=== PATIENT | male | born 1965 | race Caucasian/White ===

== ENCOUNTER 2018-01-20 10:55 | Emergency (ER) | payer SELFPAY ==
[2018-01-20] MEDS ORDERED: NA CHLORIDE 0.9% 1,000 ML ONE (11:22)
[2018-01-20 11:50] LABS: Absolute Lymphocytes (CBC) 1.8 K/uL (0.7-4.9); Absolute Monocytes 1.2 K/uL (0.1-1.3); Absolute Neutrophil 8.5 K/uL (1.8-8.0); Basophils % 0.4 % (0-1.3); Eosinophils % 0.4 % (0-4.4); Lymphocytes % 15.9 % (15.3-44.8); MCH 32.2 pg (27.0-35.0); MCV 95.4 fL (80-100); MPV 9.9 fL (7.6-11.3); RBC Red Blood Cell Count 5.03 M/uL (4.33-5.43)
[2018-01-20 11:59] LABS: Protime INR 0.97
--- NOTE | 2018-01-20 12:22 | RAD REPORT ---
EXAM DESCRIPTION: RAD - Chest Single View - 01/20/2018 12:14 pm CLINICAL HISTORY: COUGH Chest pain. COMPARISON: No comparisons FINDINGS: Portable technique limits examination quality. The lungs are grossly clear. The heart is normal in size. No displaced fractures. IMPRESSION: No acute intrathoracic process suspected.
[2018-01-20 12:29] LABS: ALT/SGPT 21 U/L (12-78); AST/SGOT 18 U/L (15-37); Albumin 4.1 g/dL (3.4-5.0); Alkaline Phosphatase 89 U/L (45-117); BUN Blood Urea Nitrogen 23 mg/dL (7-18); Bicarbonate 28 mmol/L (21-32); Bilirubin Direct < 0.1 mg/dL (0-0.2); Bilirubin Total 0.3 mg/dL (0.2-1.0); CKMB Creatine Kinase MB < 1.0 ng/mL (0.3-3.6); Creatine Phosphokinase 68 U/L (39-308); Glucose Level 103 mg/dL (74-106); Lipase 79 U/L (73-393); Magnesium 2.2 mg/dL (1.8-2.4); NT PRO-BNP 55 pg/mL (<125); Potassium 4.5 mmol/L (3.5-5.1); Protein, Total 7.9 g/dL (6.4-8.2); Sodium Level 137 mmol/L (136-145)
--- NOTE | 2018-01-20 13:06 | EDPHYS ---
Physician Documentation [facility] Name: Jose Brantley Age: 52 yrs Sex: Male : 1965 Arrival Date: 01/20/2018 Time: 10:57 Bed 8 Private MD: ED Physician Mark Cornejo HPI: 01/20 13:02 This 52 yrs old Male presents to ER via Ambulatory with complaints of Pain janna All Over, General Weakness. 13:02 The patient presents to the emergency department with weakness of the entire body, janna generalized weakness. 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 - Social history:: Smoking status: Patient uses tobacco products, smokes one-half pack cigarettes per day, Patient uses alcohol, weekly. - Ebola Screening: : No symptoms or risks identified at this time. ROS: 13:02 Constitutional: Negative for fever, chills, and weight loss, Eyes: Negative for injury, janna pain, redness, and discharge, ENT: Negative for injury, pain, and discharge, Neck: Negative for injury, pain, and swelling, Cardiovascular: Negative for chest pain, palpitations, and edema, Back: Negative for injury and pain, : Negative for injury, bleeding, discharge, and swelling, MS/Extremity: Negative for injury and deformity, Skin: Negative for injury, rash, and discoloration, Neuro: Negative for headache, weakness, numbness, tingling, and seizure, Psych: Negative for depression, anxiety, suicide ideation, homicidal ideation, and hallucinations, Allergy/Immunology: Negative for hives, rash, and allergies, Endocrine: Negative for neck swelling, polydipsia, polyuria, polyphagia, and marked weight changes, Hematologic/Lymphatic: Negative for swollen nodes, abnormal bleeding, and unusual bruising. 13:02 Respiratory: Positive for cough. 13:02 Abdomen/GI: Positive for abdominal pain. Exam: 13:02 Constitutional: This is a well developed, well nourished patient who is awake, alert, janna and in no acute distress. Head/Face: Normocephalic, atraumatic. Eyes: Pupils equal round and reactive to light, extra-ocular motions intact. Lids and lashes normal. Conjunctiva and sclera are non-icteric and not injected. Cornea within normal limits. Periorbital areas with no swelling, redness, or edema. ENT: Nares patent. No nasal discharge, no septal abnormalities noted. Tympanic membranes are normal and external auditory canals are clear. Oropharynx with no redness, swelling, or masses, exudates, or evidence of obstruction, uvula midline. Mucous membranes moist. Neck: Trachea midline, no thyromegaly or masses palpated, and no cervical lymphadenopathy. Supple, full range of motion without nuchal rigidity, or vertebral point tenderness. No Meningismus. Chest/axilla: Normal chest wall appearance and motion. Nontender with no deformity. No lesions are appreciated. Cardiovascular: Regular rate and rhythm with a normal S1 and S2. No gallops, murmurs, or rubs. Normal PMI, no JVD. No pulse deficits. Respiratory: Lungs have equal breath sounds bilaterally, clear to auscultation and percussion. No rales, rhonchi or wheezes noted. No increased work of breathing, no retractions or nasal flaring. Back: No spinal tenderness. No costovertebral tenderness. Full range of motion. Male : Normal genitalia with no discharge or lesions. Skin: Warm, dry with normal turgor. Normal color with no rashes, no lesions, and no evidence of cellulitis. MS/ Extremity: Pulses equal, no cyanosis. Neurovascular intact. Full, normal range of motion. Neuro: Awake and alert, GCS 15, oriented to person, place, time, and situation. Cranial nerves II-XII grossly intact. Motor strength 5/5 in all extremities. Sensory grossly intact. Cerebellar exam normal. Normal gait. Psych: Awake, alert, with orientation to person, place and time. Behavior, mood, and affect are within normal limits. 13:02 Abdomen/GI: Inspection: abdomen appears normal, Bowel sounds: normal, Palpation: mild abdominal tenderness, in the epigastric area, Liver: no appreciated palpable abnormalities, Hernia: not appreciated. Vital Signs: 11:06 BP 129 / 109; Pulse 99; Resp 18; Temp 97.5; Pulse Ox 99% ; Weight 72.57 kg; Height 6 sv ft. 0 in. (182.88 cm); 11:06 Body Mass Index 21.70 (72.57 kg, 182.88 cm) sv MDM: 11:10 Patient medically screened. [facility] 13:03 Data reviewed: vital signs, nurses notes, lab test result(s), EKG, radiologic studies, janna plain films. 01/20 11:18 Order name: Basic Metabolic Panel; Complete Time: 13:00 [facility] 01/20 11:18 Order name: CBC with Diff; Complete Time: 13: [facility] 01/20 11:18 Order name: Ckmb; Complete Time: 13: [facility] 01/20 11:18 Order name: CPK; Complete Time: 13: [facility] 01/20 11:18 Order name: LFT's; Complete Time: 13: [facility] 01/20 11:18 Order name: Magnesium; Complete Time: 13: [facility] 01/20 11:18 Order name: NT PRO-BNP; Complete Time: 13: [facility] 01/20 11:18 Order name: PT-INR; Complete Time: 13: [facility] 01/20 11:18 Order name: Ptt, Activated; Complete Time: 13: [facility] 01/20 11:18 Order name: Troponin (emerg Dept Use Only); Complete Time: 13: [facility] 01/20 11:18 Order name: Lipase; Complete Time: 13: [facility] 01/20 11:18 Order name: Blood Culture Adult (2) 01/20 11:18 Order name: Urine Culture [facility] 01/20 11:18 Order name: Flu; Complete Time: 13: [facility] 01/20 11:18 Order name: XRAY Chest (1 view); Complete Time: 13: [facility] 01/20 11:18 Order name: EKG; Complete Time: 11:19 [facility] 01/20 11:18 Order name: Cardiac monitoring; Complete Time: 11: [facility] 01/20 11:18 Order name: EKG - Nurse/Tech; Complete Time: 12:13 [facility] 01/20 11:18 Order name: IV Saline Lock; Complete Time: 11: [facility] 01/20 11:18 Order name: Labs collected and sent; Complete Time: 11: [facility] 01/20 11:18 Order name: O2 Per Protocol; Complete Time: 11:18 [facility] 01/20 11:18 Order name: O2 Sat Monitoring; Complete Time: : [facility] 01/20 12:57 Order name: Urine Dipstick--Ancillary (enter results) bd Administered Medications: 11:30 Drug: NS 0.9% 1000 ml Route: IV; Rate: 125 ml/hr; Site: right antecubital; iw 13:27 Follow up: Response: No adverse reaction; Rate change 1000 bolus sg 13:54 Drug: Zithromax 500 mg Route: PO; sg 13:55 Drug: Pepcid 20 mg Route: IVP; Site: left forearm; sg Disposition: 01/20/18 13:06 Discharged to Home. Impression: Weakness, Bronchitis, not specified as acute or chronic, Functional dyspepsia. - Condition is Stable. - Discharge Instructions: Acute Bronchitis, Upper Respiratory Infection, Adult, Weakness, Upper Respiratory Infection, Adult, Ucor-eb-Ahcz, Weakness, Lwno-ja-Ubex, Aspirin and Your Heart. - Prescriptions for Pepcid 20 mg Oral Tablet - take 1 tablet by ORAL route every 12 hours for 10 days; 20 tablet. Zithromax Z- Kendall 250 mg Oral Tablet - take 1 tablet by ORAL route as directed for 5 days Day 1 - take two (2) tablets one time. Day 2, 3, 4 , 5 take one (1) tablet once daily.; 6 tablet. - Medication Reconciliation Form, Thank You Letter, Antibiotic Education, Prescription Opioid Use form. - Follow up: Private Physician; When: 2 - 3 days; Reason: Recheck today's complaints, Continuance of care, Re-evaluation by your physician. - Problem is new. - Symptoms have improved. Signatures: Dispatcher [employer] Jeannette Pina RN RN Jermaine Joel RN RN sg Anderson, Corey, MD MD cha Williams, Irene, RN RN Corrections: (The following items were deleted from the chart) 14:52 13:06 01/20/2018 13:06 Discharged to Home. Impression: Weakness; Bronchitis, not iw specified as acute or chronic; Functional dyspepsia. Condition is Stable. Forms are Medication Reconciliation Form, Thank You Letter, Antibiotic Education, Prescription Opioid Use. Follow up: Private Physician; When: 2 - 3 days; Reason: Recheck today's complaints, Continuance of care, Re-evaluation by your physician. Problem is new. Symptoms have improved. [facility]
--- NOTE | 2018-01-20 13:06 | ER ---
Nurse's Notes [facility] Name: Jose Brantley Age: 52 yrs Sex: Male : 1965 Arrival Date: 01/20/2018 Time: 10:57 Bed 8 Private MD: Diagnosis: Weakness;Bronchitis, not specified as acute or chronic;Functional dyspepsia Presentation: 01/20 11:06 Presenting complaint: Patient states: cold symptoms for the past couple of weeks, no sv appetite, chills, nausea, cough. Denies vomiting/diarrhea. Transition of care: patient was not received from another setting of care. Onset of symptoms is unknown. Care prior to arrival: None. 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 - Social history:: Smoking status: Patient uses tobacco products, smokes one-half pack cigarettes per day, Patient uses alcohol, weekly. - Ebola Screening: : No symptoms or risks identified at this time. Assessment: 12:00 General: Appears in no apparent distress. comfortable, well groomed, well developed, sg well nourished, Behavior is calm, cooperative, appropriate for age. Pain: Complains of pain in pain all over, epigastric area Quality of pain is described as aching. Neuro: Level of Consciousness is awake, alert, obeys commands, Oriented to person, place, time, situation, Hatchery Laborer are equal bilaterally Moves all extremities. Full function Speech is normal, Facial symmetry appears normal. Cardiovascular: Heart tones S1 S2 present Capillary refill is brisk in bilateral fingers Patient's skin is warm and dry. Chest pain is denied. Respiratory: Airway is patent Respiratory effort is even, unlabored, Respiratory pattern is regular, symmetrical, Breath sounds are clear. GI: Abdomen is round non-distended, Bowel sounds present X 4 quads. Reports epigastric pain. : No signs and/or symptoms were reported regarding the genitourinary system. EENT: No signs and/or symptoms were reported regarding the EENT system. Derm: Skin is pink, warm \T\ dry. Musculoskeletal: No signs and/or symptoms reported regarding the musculoskeletal system. 13:00 Reassessment: Patient appears in no apparent distress at this time. Patient and/or sg family updated on plan of care and expected duration. Pain level reassessed. Patient is alert, oriented x 3, equal unlabored respirations, skin warm/dry/pink. Vital Signs: 11:06 BP 129 / 109; Pulse 99; Resp 18; Temp 97.5; Pulse Ox 99% ; Weight 72.57 kg; Height 6 sv ft. 0 in. (182.88 cm); 11:06 Body Mass Index 21.70 (72.57 kg, 182.88 cm) sv ED Course: 10:57 Patient arrived in ED. rg4 11:06 Arm band placed on right wrist. Patient placed in an exam room, on a stretcher. sv 11:10 Mark Cornejo MD is Attending Physician. [facility] 11:14 Triage completed. sv 11:18 Jermaine Joel RN is Primary Nurse. sg 11:30 Initial lab(s) drawn, by va, sent to lab. Inserted saline lock: 20 gauge in left iw forearm, using aseptic technique. Blood collected. 12:06 X-ray completed. Portable x-ray completed in exam room. Patient tolerated procedure jb2 well. 12:12 XRAY Chest (1 view) In Process Unspecified. EDMS Administered Medications: 11:30 Drug: NS 0.9% 1000 ml Route: IV; Rate: 125 ml/hr; Site: right antecubital; iw 13:27 Follow up: Response: No adverse reaction; Rate change 1000 bolus sg 13:54 Drug: Zithromax 500 mg Route: PO; sg 13:55 Drug: Pepcid 20 mg Route: IVP; Site: left forearm; sg Outcome: 13:06 Discharge ordered by . janna 14:52 Patient left the ED. iw Signatures: Dispatcher [employer] EDMS Jeannette Berger RN RN sv Gay, Steven, RN Mark Porter MD MD cha Buechter, Jesse jb2 Nhi Blackwell RN RN Kim Robin rg4
[2018-01-20 13:10] LABS: Urine Blood NEGATIVE (NEG); Urine Glucose NEGATIVE (NEG); Urine Protein NEGATIVE (NEG)
[2018-01-20] MEDS ORDERED: FAMOTIDINE 20 MG/2 ML VIAL IV ONE (13:50)
[2018-01-20] MEDS ORDERED: AZITHROMYCIN 250 MG TAB ONE (13:50)
[2018-01-20 14:56] VITALS: BP 129/109; TEMP 97.5; O2SAT 99
--- NOTE | 2018-01-20 15:40 | EKG ---
Test Date: 2018-01-20 Test Time: 11:47:27 City Planner: [place] MEASUREMENT RESULTS: Intervals: Rate: 83 OK: 194 QRSD: 84 QT: 372 QTc: 437 Shaniko: P: 74 OK: 194 QRS: -57 T: 45 INTERPRETIVE STATEMENTS: Normal sinus rhythm Left axis deviation Cannot rule out Anteroseptal infarct, age undetermined Abnormal ECG No previous ECG available for comparison Electronically Signed On 01-20-18 15:40:18 CDT by Umang Kaiser
== END 2018-01-20 14:52 | disposition home or self-care (01) ==
LOC: ER 10:55
DX: R53.1 Weakness (principal); J40 Bronchitis, not specified as acute or chronic; K30 Functional dyspepsia; R52 Pain, unspecified; F17.210 Nicotine dependence, cigarettes, uncomplicated; Z88.0 Allergy status to penicillin
CPT/HCPCS: 36415; 71045; 80048; 80076; 81003; 82550; 82553; 83690; 83735; 83880; 84484; 85025; 85610; 85730; 87040; 87086; 87088; 87804; 93005; 96374; 99284; J7030

== ENCOUNTER 2019-12-04 09:24 | Emergency (ER) | payer SELFPAY ==
[2019-12-04] MEDS ORDERED: MORPHINE 4 MG/ML SYR ONE (10:02)
[2019-12-04] MEDS ORDERED: NA CHLORIDE 0.9% 1,000 ML ONE (10:02)
[2019-12-04] MEDS ORDERED: ONDANSETRON 4 MG/2 ML VIAL ONE (10:02)
[2019-12-04 10:08] LABS: Absolute Lymphocytes (CBC) 1.4 K/uL (0.7-4.9); Basophils % 0.4 % (0-1.3); Hematocrit 46.3 % (39.6-49.0); MPV 9.7 fL (7.6-11.3); RBC Red Blood Cell Count 4.57 M/uL (4.33-5.43)
[2019-12-04 10:20] LABS: Urine Bacteria NONE SEEN /HPF (NONE SEEN); Urine RBC <5 /HPF (NONE SEEN)
[2019-12-04 10:21] LABS: Urine Blood NEGATIVE (NEG); Urine Glucose NEGATIVE (NEG); Urine Protein NEGATIVE (NEG); Urine Specific Gravity 1.025 (1.005-1.030)
[2019-12-04 10:21] LABS: Urine Culture Reflex Order NOT NEEDED
--- NOTE | 2019-12-04 10:42 | RAD REPORT ---
EXAM DESCRIPTION: CT - Stone Protocol - 12/04/2019 10:17 am CLINICAL HISTORY: Right low back pain COMPARISON: Stone Protocol dated 06/21/2017 TECHNIQUE: Axial 3 mm thick images were obtained without oral or IV contrast. The [id number] span s the entirety of the system including uppermost abdomen and lung bases. All CT scans are performed using dose optimization technique as appropriate and may include automated exposure control or mA/KV adjustment according to patient size. FINDINGS: No hydronephrosis is present and no obstructing ureteral calculi. No suspicious renal mass es. Isodense masses and pyelonephritis are not excluded on a stone protocol CT scan. No significant a drenal finding. Urinary bladder is only partially filled. This accentuates wall thickness. Cystitis c ould be obscured in this setting. Imaged portions of the liver, spleen and pancreas show no suspicious findings on non-contrast imaging . No gallbladder or biliary tree abnormality identified. Gallstones can be occult on noncontrast imag ing. No suspicious bowel findings. No evidence for appendicitis. No hernia, mass or bulky lymphadenopathy noted. No free air, free fluid or inflammatory stranding. Degenerative right convex scoliotic changes are present in the lower lumbar spine. Advanced degenerat nicolasa disc disease at L5-S1 with endplate spurring and degenerative gas in the disc space. Right centra l canal and right foramen disc bulge changes are present at L2-3. Circumferential disc bulge present at L3-4. Protruding disc material present in the right central canal and fills the right exit foramen . This is probably a large disc herniation. Nerve root mass is not excluded. The patient has advanced facet joint degenerative change at this level. Significant T11-12 degenerative disc disease is prese nt. There is concavity to the superior endplate L2. IMPRESSION: Soft tissue mass filling the right exit foramen and partially filling the right central canal at L4-5. This is typically a large disc herniation. Central spinal stenosis and significant rig ht foraminal stenosis are present. Additional vertebral body and disc degenerative changes are present. There is limited assessment on C T abdomen and pelvis imaging. No hydronephrosis or acute finding. The partially filled bladder limits assessment of cystitis. Isodense masses and pyelonephritis are not excluded on stone protocol technique.
[2019-12-04 11:07] LABS: Albumin 3.6 g/dL (3.4-5.0); Bilirubin Direct 0.1 mg/dL (0-0.2); Bilirubin Total 0.3 mg/dL (0.2-1.0); Potassium 4.2 mmol/L (3.5-5.1); Protein, Total 7.2 g/dL (6.4-8.2)
--- NOTE | 2019-12-04 11:14 | ER ---
Nurse's Notes [facility] Name: Jose Brantley Age: 54 yrs Sex: Male : 1965 Arrival Date: 12/04/2019 Time: 09: Bed 5 Private MD: None, None Diagnosis: Other intervertebral disc displacement, lumbar region Presentation: 12/03 09:31 Ebola Screen: No symptoms or risks identified at this time. Initial Sepsis Screen: Does jl7 the patient meet any 2 criteria? No. Patient's initial sepsis screen is negative. Does the patient have a suspected source of infection? No. Patient's initial sepsis screen is negative. Risk Assessment: Do you want to hurt yourself or someone else? Patient reports no desire to harm self or others. 09:31 Method Of Arrival: Ambulatory [facility] 09:35 Chief complaint: Patient states: low back pain, "tailbone" area x 2-3 months. Pt also ss reports increasing urinary frequency that began around the same time. Coronavirus screen: Proceed with normal triage. Patient denies a cough. Patient denies shortness of breath or difficulty breathing. Patient denies measured and/or subjective temperature greater than 100.4F prior to today's visit. Patient denies travel on a cruise ship or to a country the [facility] currently lists as an affected area. Patient denies contact with known and/or suspected case of COVID-19. Onset of symptoms is unknown. 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 - Social history:: Smoking status: Patient reports the use of cigarette tobacco products, smokes one-half pack cigarettes per day. Screenin:30 Abuse screen: Denies threats or abuse. Denies injuries from another. Nutritional jl7 screening: No deficits noted. Tuberculosis screening: No symptoms or risk factors identified. 10:00 Fall Risk IV access (20 points). Total Wall Fall Scale indicates No Risk (0-24 pts). jl7 Assessment: 09:30 General: Appears in no apparent distress. uncomfortable, Behavior is calm, cooperative, jl7 appropriate for age. Pain: Complains of pain in low back area Pain radiates to right leg and left leg Pain currently is 8 out of 10 on a pain scale. Neuro: Level of Consciousness is awake, alert, obeys commands, Oriented to person, place, time, situation. Cardiovascular: Patient's skin is warm and dry. Respiratory: Airway is patent Respiratory effort is even, unlabored, Respiratory pattern is regular, symmetrical. Derm: Skin is pink, warm \\T\\ dry. 10:30 Reassessment: Patient appears in no apparent distress at this time. Patient and/or jl7 family updated on plan of care and expected duration. Pain level reassessed. Patient is alert, oriented x 3, equal unlabored respirations, skin warm/dry/pink. Patient states symptoms have improved. Vital Signs: 09:35 BP 151 / 101; Pulse 102; Resp 15; Temp 98.5(TE); Pulse Ox 98% on R/A; Weight 79.38 kg; ss Height 6 ft. 0 in. (182.88 cm); Pain 8/10; 11:00 BP 149 / 95; Pulse 89; Resp 16; Pulse Ox 100% ; jl7 09:35 Body Mass Index 23.73 (79.38 kg, 182.88 cm) ED Course: 09:26 Patient arrived in ED. mr 09:27 None, None is Private Physician. mr 09:28 Mark Cornejo MD is Attending Physician. [facility] 09:28 Chandler Israel [facility] pm1 09:30 Mary Beth Garcia RN is Primary Nurse. jl7 09:30 Patient has correct armband on for positive identification. Bed in low position. Call jl7 light in reach. Side rails up X 1. Pulse ox on. NIBP on. 09:31 Arm band placed on right wrist. jl7 09:37 Triage completed. ss 09:50 Initial lab(s) drawn, by me, sent to lab. Inserted saline lock: 20 gauge in right em forearm, using aseptic technique. Blood collected. 09:55 Lab(s) recollected, by me, sent to lab. Inserted saline lock: 20 gauge in left forearm, [facility] using aseptic technique. Blood collected. 10:17 CT Stone Protocol In Process Unspecified. EDMS 10:17 CT completed. Patient tolerated procedure well. Patient moved back from CT. bq 11:37 IV discontinued, intact, bleeding controlled, No redness/swelling at site. Pressure jl7 dressing applied. 11:37 No provider procedures requiring assistance completed. jl7 Administered Medications: 09:58 Drug: NS 0.9% 1000 ml Route: IV; Rate: 1000 ml; Site: right forearm; em 09:58 Drug: Zofran (Ondansetron) 4 mg Route: IVP; Site: right forearm; em 10:00 Drug: morphine 4 mg Route: IVP; Site: right forearm; em 11:20 Drug: Lidoderm 5 % (700 mg/patch) 1 patches Route: Topical; Site: affected area; jl7 Outcome: 11:13 Discharge ordered by . pm1 11:35 Discharged to home ambulatory. jl7 11:35 Condition: stable 11:35 Discharge instructions given to patient, Instructed on discharge instructions, follow up and referral plans. medication usage, Demonstrated understanding of instructions, follow-up care, medications, Prescriptions given X 2. 11:40 Patient left the ED. jl7 Signatures: Dispatcher [employer] EDMS Mark Cornejo MD MD cha Rivera, Mary mr NayelilexieBaylee Edgar, Angeles Olivarez RN, RN RN ss Chandler Israel NP SINGER SONGWRITER pm1 Mary Beth Garcia RN RN jl7 Corrections: (The following items were deleted from the chart) 09:33 09:31 PMHx: Pancreatitis; jl7 jl7
--- NOTE | 2019-12-04 11:14 | EDPHYS ---
Physician Documentation [facility] Name: Jose Brantley Age: 54 yrs Sex: Male : 1965 Arrival Date: 12/04/2019 Time: 09:26 Bed 5 Private MD: None, None ED Physician Mark Cornejo HPI: 12/03 09:36 This 54 yrs old Male presents to ER via Ambulatory with complaints of Back pm1 Pain. 09:36 The patient presents with pain to right lower back area. Onset: The symptoms/episode pm1 began/occurred 3 month(s) ago. The pain radiates to the right leg. Associated signs and symptoms: Pertinent positives: Increased urination, Pertinent negatives: abdominal pain, chest pain, constipation, fever, numbness, tingling, urinary retention, burning with urination. The problem was sustained from unknown cause, possibly from right hip injury surgery 12 years ago. Modifying factors: The patient symptoms are alleviated by rest, the patient symptoms are aggravated by movement. Severity of symptoms: in the emergency department the symptoms are unchanged. The patient has not recently seen a physician. 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 - Social history:: Smoking status: Patient reports the use of cigarette tobacco products, smokes one-half pack cigarettes per day. ROS: 09:31 Constitutional: Negative for fever, chills, and weight loss, Neck: Negative for injury, pm1 pain, and swelling, Cardiovascular: Negative for chest pain, palpitations, and edema, Respiratory: Negative for shortness of breath, cough, wheezing, and pleuritic chest pain, Abdomen/GI: Negative for abdominal pain, nausea, vomiting, diarrhea, and constipation. 09:31 MS/Extremity: Negative for injury and deformity, Skin: Negative for injury, rash, and discoloration, Neuro: Negative for headache, weakness, numbness, tingling, and seizure. 09:31 Back: Positive for pain with movement, of the sacrum and right low back. 09:31 : Positive for urinary frequency. Exam: 09:39 Constitutional: This is a well developed, well nourished patient who is awake, alert, pm1 and in no acute distress. Head/Face: Normocephalic, atraumatic. Neck: Trachea midline, no thyromegaly or masses palpated, and no cervical lymphadenopathy. Supple, full range of motion without nuchal rigidity, or vertebral point tenderness. No Meningismus. Chest/axilla: Normal chest wall appearance and motion. Nontender with no deformity. No lesions are appreciated. Respiratory: Lungs have equal breath sounds bilaterally, clear to auscultation and percussion. No rales, rhonchi or wheezes noted. No increased work of breathing, no retractions or nasal flaring. 09:39 Abdomen/GI: Soft, non-tender. No guarding or rebound. No evidence of tenderness throughout. 09:39 Skin: Warm, dry with normal turgor. Normal color with no rashes, no lesions, and no evidence of cellulitis. MS/ Extremity: Pulses equal, no cyanosis. Neurovascular intact. Full, normal range of motion. 09:39 Cardiovascular: Exam negative for acute changes, Rate: normal, Rhythm: regular, Pulses: no pulse deficits are appreciated. 09:39 Respiratory: Exam negative for acute changes, respiratory distress, shortness of breath. 09:39 Back: pain, that is mild, of the right low back, vertebral tenderness, is not appreciated. 09:39 Neuro: Orientation: is normal, Mentation: is normal, Motor: is normal, moves all fours, strength is 5/5 in all extremities, Patient with 5/5 strength with dorsi and plantar flexion of bilateral great toes. Patient able to walk back and forth to the restroom without any difficulty, Sensation: is normal, no obvious gross deficits, Gait: is steady, at a normal pace, without difficulty. Vital Signs: 09:35 BP 151 / 101; Pulse 102; Resp 15; Temp 98.5(TE); Pulse Ox 98% on R/A; Weight 79.38 kg; ss Height 6 ft. 0 in. (182.88 cm); Pain 8/10; 11:00 BP 149 / 95; Pulse 89; Resp 16; Pulse Ox 100% ; jl7 09:35 Body Mass Index 23.73 (79.38 kg, 182.88 cm) ss MDM: 09:28 Patient medically screened. [facility] 11:12 Data reviewed: vital signs. Data interpreted: Pulse oximetry: on room air is 98 %. pm1 Interpretation: normal. 11:12 Counseling: I had a detailed discussion with the patient and/or guardian regarding: the pm1 historical points, exam findings, and any diagnostic results supporting the discharge/admit diagnosis, lab results, radiology results, the need for outpatient follow up, for definitive care, a neurosurgeon, to return to the emergency department if symptoms worsen or persist or if there are any questions or concerns that arise at home. 12/03 09:34 Order name: Basic Metabolic Panel; Complete Time: 11:12 pm1 12/03 09:34 Order name: CBC with Diff; Complete Time: 10:11 pm1 12/03 09:34 Order name: Creatinine for Radiology; Complete Time: 11:12 pm1 12/03 09:34 Order name: Hepatic Function; Complete Time: 11:12 pm1 12/03 09:34 Order name: Lipase; Complete Time: 11:12 pm1 12/03 09:34 Order name: Urine Microscopic Only; Complete Time: 10:24 pm1 12/03 09:34 Order name: IV Saline Lock; Complete Time: 10:01 pm1 12/03 09:34 Order name: Labs collected and sent; Complete Time: 10:01 pm1 12/03 09:34 Order name: CT Stone Protocol; Complete Time: 10:46 pm1 12/03 10:02 Order name: Urine Dipstick--Ancillary (enter results); Complete Time: 10:24 eb 12/03 09:34 Order name: Urine Dipstick-Ancillary (obtain specimen); Complete Time: 09:43 pm1 12/03 10:10 Order name: Labs - recollect needed: recollect the chemistry tube/ ; Complete Time: eb 10:55 Administered Medications: 09:58 Drug: NS 0.9% 1000 ml Route: IV; Rate: 1000 ml; Site: right forearm; em 09:58 Drug: Zofran (Ondansetron) 4 mg Route: IVP; Site: right forearm; em 10:00 Drug: morphine 4 mg Route: IVP; Site: right forearm; em 11:20 Drug: Lidoderm 5 % (700 mg/patch) 1 patches Route: Topical; Site: affected area; jl7 Disposition: 12/04/19 11:13 Discharged to Home. Impression: Other intervertebral disc displacement, lumbar region. - Condition is Stable. - Discharge Instructions: Herniated Disk. - Prescriptions for Lidoderm 5 % Topical adhesive patch,medicated - apply 1 patch by TRANSDERMAL route once daily As needed; 30 Transdermal Patch. Tylenol- Codeine #3 300-30 mg Oral Tablet - take 2 tablets by ORAL route every 6 hours As needed; 20 tablet. - Medication Reconciliation Form, Thank You Letter, Antibiotic Education, Prescription Opioid Use form. - Follow up: Emergency Department; When: As needed; Reason: Worsening of condition. Follow up: Private Physician; When: 2 - 3 days; Reason: Recheck today's complaints, Continuance of care, Re-evaluation by your physician. - Problem is new. - Symptoms have improved. Addendum: 12/06/2019 20:15 Co-signature as Attending Physician, Mark Cornejo MD I agree with the assessment and c sellers plan of care. Signatures: Dispatcher [employer] Mark Suárez MD MD cha Munoz, Edgar, RN RN Angeles Cochran RN RN ss Chandler Israel, R[employer] C[employer]ER SUPPORT SPECIALIST pm1 Mary Beth Garcia RN RN jl7 Sneha Rodriguez Corrections: (The following items were deleted from the chart) 12/03 09:33 09:31 PMHx: Pancreatitis; jl7 jl7 11:40 11:13 12/04/2019 11:13 Discharged to Home. Impression: Other intervertebral disc jl7 displacement, lumbar region. Condition is Stable. Discharge Instructions: Herniated Disk. Prescriptions for Lidoderm 5 % Topical adhesive patch,medicated - apply 1 patch by TRANSDERMAL route once daily As needed; 30 Transdermal Patch, Tylenol-Codeine #3 300-30 mg Oral Tablet - take 2 tablets by ORAL route every 6 hours As needed; 20 tablet. and Forms are Medication Reconciliation Form, Thank You Letter, Antibiotic Education, Prescription Opioid Use. Follow up: Emergency Department; When: As needed; Reason: Worsening of condition. Follow up: Private Physician; When: 2 - 3 days; Reason: Recheck today's complaints, Continuance of care, Re-evaluation by your physician. Problem is new. Symptoms have improved. pm1
[2019-12-04] MEDS ORDERED: LIDOCAINE 4% PATCH ONE (11:22)
[2019-12-04 11:50] VITALS: TEMP 98.5
[2019-12-04 11:51] VITALS: BP 149/95; O2SAT 100
== END 2019-12-04 11:40 | disposition home or self-care (01) ==
LOC: ER 09:24
DX: M51.26 Other intervertebral disc displacement, lumbar region (principal); F17.210 Nicotine dependence, cigarettes, uncomplicated; Z88.0 Allergy status to penicillin
CPT/HCPCS: 36415; 74176; 76377; 80048; 80076; 81003; 81015; 83690; 85025; 96374; 96375; 99284; J2405; J7030

== ENCOUNTER 2024-01-21 10:28 | Inpatient (IN) | payer OTHER, SELFPAY ==
--- OUTSIDE RECORDS SUMMARY | 2024-01-21 10:32 | XMS REPORT | Continuity of Care Document ---
Author Name Unknown Address [address] [facility] [address] [place] [address] [facility] Address [address] [facility] [address] [place] [address] Care Team Providers Care Atm Servicer Name Role Phone Pcp, Patient Does Not Have A Primary Care Physic guillermo CAPRI Attending Clinician Unavailable Nicole Blackwell DO Attending Clinician [phone] Doctor Unassigned, Callery Attending Clinician U Janay Dunne Attending Clinician [phone] JANAY MCUCLLOUGH Attending Clinician Unavailab dano FAROOQ Admitting Clinician Unavailable Payers Payer Name Policy Type Policy Number Effective Date Expirati on Date Source Problems Condition Name Condition Details Condition Category Status Onset Date Resolution Date Last Treatment Date Treating Clinician Comments Source Chest pain Chest Pain Problem Active 01-20 00:00: 00 [facility] Anxiety Anxiety Problem Active 11-25 00:00: 00 [facility] Essential hypertensi on Essential Hypertensi on Problem Active 11-25 00:00: 00 [facility] Pneumonia Pneumonia Problem Active 11-25 00:00: 00 [facility] Low back pain Low Back Pain Problem Active 5-01 00:00: 00 [facility] Verruca vulgaris Verruca Vulgaris Problem Active 6-02 00:00: 00 [facility] Active or passive immunizati on Active or Passive Immunizati on Problem Active 6-02 00:00: 00 [facility] Screening for malignant neoplasm of colon Screening for Malignant Neoplasm of Colon Problem Active 6-02 00:00: 00 [facility] Essential hypertensi on Essential Hypertensi on Problem Active 4-06 00:00: 00 [facility] Urinary tract infectious disease Urinary Tract Infectious Disease Problem Active 4-06 00:00: 00 [facility] Chronic low back pain Chronic Low Back Pain Problem Active 4-06 00:00: 00 [facility] Nocturia Nocturia Problem Active 4-06 00:00: 00 [facility] Adult health examinatio n Adult Health Examinatio n Problem Active 4-06 00:00: 00 [facility] Chest pain Chest pain Disease Active 4-04 00:00: 00 Overview: Formattin g of this note might be different from the original. ICD10 Diagnosis Term Record Tester Utility [facility] Other specified anemias Other specified anemias Disease Active 10-04 00:00: 00 [facility] Acute pancreatit is Acute pancreatit is Disease Active 10-04 00:00: 00 [facility] Chronic pancreatit is Chronic pancreatit is Disease Active 10-04 00:00: 00 [facility] Esophageal reflux Esophageal reflux Disease Active 10-04 00:00: 00 [facility] Allergies, Adverse Reactions, Alerts Allergy Name Allergy Type Status Severity Reaction(s) Onset Date Inactive Date Treating Clinician Comments Source Penicill ins Propensi ty to adverse reaction s Active Rash 10-04 00:00: 00 [facility] PENICILL INS Drug Class Active Rash 10-04 00:00: 00 [facility] PENICILL INS Allergy to substanc e Active Moderate severity Rash [facility] Social History Social Habit Start Date Stop Date Quantity Comments Source Exposure to SARS-CoV-2 (event) Not sure [facility] Sex Assigned At 1965 00:00:00 1965 00:00:00 [facility] Smoking Status Start Date Stop Date Source Former Smoker Oumar choe Heavy Tobacco Smoker [facility] Unknown if ever smoked [facility] Medications Ordered Medication Name Filled Medication Name Start Date Stop Date Current Medication? Ordering Clinician Indication Dosage Frequency Signature (SIG) Comments Components Source dexamethaso ne (DECADRON PHOSPHATE) injection 10 mg 2020-07 19:15: 00 04-28 19:15 :00 No 10mg 10 mg, Intramuscu lar, ONCE, 1 dose, On 04/28/21 at 1415, STAT [facility] traMADol (ULTRAM) tablet 50 mg 12-10 17:00: 00 12-10 16:02 :00 No 50mg 50 mg, Oral, ONCE, 1 dose, 12/11/19 at 1200, Routine [facility] traMADol 50 mg tablet 12-10 00:00: 00 12-10 00:00 :00 No [id number] 50mg Take 1 tablet by mouth every 6 (six) hours as needed for Pain (scale 7-10) for up to 3 days. [facility] LEVOFLOXACI N 500 MG ORAL TAB 11-14 00:00: 00 Yes 1 tab po daily for 7 days [facility] METRONIDAZO LE 500 MG ORAL TAB 11-14 00:00: 00 Yes 1 tab po Q8h for 7 days [facility] FUROSEMIDE 20 MG ORAL TAB 11-14 00:00: 00 Yes 1 tab po BID for 10 days [facility] HYDROCODONE -ACETAMINOP HEN 5-325 MG ORAL TAB 11-14 00:00: 00 Yes 2 tab po q6h prn [facility] acetaminoph en 300 mg-codeine 30 mg tablet TAKE 1 TABLET BY MOUTH EVERY 6 HOURS NEEDED FOR PAIN acetaminoph en 300 mg-codeine 30 mg tablet TAKE 1 TABLET BY MOUTH EVERY 6 HOURS NEEDED FOR PAIN No 1 Q6H acetaminop hen 300 mg-codeine 30 mg tablet TAKE 1 TABLET BY MOUTH EVERY 6 HOURS NEEDED FOR PAIN [facility] amlodipine 5 mg tablet Take 1 tablet every day by oral route for 30 days. amlodipine 5 mg tablet Take 1 tablet every day by oral route for 30 days. No 1 Q1D amlodipine 5 mg tablet Take 1 tablet every day by oral route for 30 days. [facility] gabapentin 300 mg capsule TAKE 1 CAPSULE BY MOUTH THREE TIMES DAILY gabapentin 300 mg capsule TAKE 1 CAPSULE BY MOUTH THREE TIMES DAILY No 1capsul e(s) TID gabapentin 300 mg capsule TAKE 1 CAPSULE BY MOUTH THREE TIMES DAILY [facility] methocarbam ol 750 mg tablet Take 1 tablet 3 times a day by oral route as needed for 30 days. methocarbam ol 750 mg tablet Take 1 tablet 3 times a day by oral route as needed for 30 days. No 1 TID methocarba mol 750 mg tablet Take 1 tablet 3 times a day by oral route as needed for 30 days. [facility] podofilox 0.5 % topical solution APPLY BY TOPICAL ROUTE 2 TIMES PER DAY FOR 3 DAYS THEN STOP FOR 4 DAYS. (REPEAT 7DAY CYCLE UNTIL NO VISIBLE WART TISSUE/MAX OF FOUR CYCLES) podofilox 0.5 % topical solution APPLY BY TOPICAL ROUTE 2 TIMES PER DAY FOR 3 DAYS THEN STOP FOR 4 DAYS. (REPEAT 7DAY CYCLE UNTIL NO VISIBLE WART TISSUE/MAX OF FOUR CYCLES) No podofilox 0.5 % topical solution APPLY BY TOPICAL ROUTE 2 TIMES PER DAY FOR 3 DAYS THEN STOP FOR 4 DAYS. (REPEAT 7DAY CYCLE UNTIL NO VISIBLE WART TISSUE/MAX OF FOUR CYCLES) [facility] gabapentin 300 mg capsule TAKE 1 CAPSULE BY MOUTH THREE TIMES DAILY gabapentin 300 mg capsule TAKE 1 CAPSULE BY MOUTH THREE TIMES DAILY No gabapentin 300 mg capsule TAKE 1 CAPSULE BY MOUTH THREE TIMES DAILY [facility] methocarbam ol 750 mg tablet TAKE 1 TABLET BY MOUTH THREE TIMES DAILY NEEDED methocarbam ol 750 mg tablet TAKE 1 TABLET BY MOUTH THREE TIMES DAILY NEEDED No methocarba mol 750 mg tablet TAKE 1 TABLET BY MOUTH THREE TIMES DAILY NEEDED [facility] podofilox 0.5 % topical solution APPLY BY TOPICAL ROUTE 2 TIMES PER DAY FOR 3 DAYS THEN STOP FOR 4 DAYS. (REPEAT 7DAY CYCLE UNTIL NO VISIBLE WART TISSUE/MAX OF FOUR CYCLES) podofilox 0.5 % topical solution APPLY BY TOPICAL ROUTE 2 TIMES PER DAY FOR 3 DAYS THEN STOP FOR 4 DAYS. (REPEAT 7DAY CYCLE UNTIL NO VISIBLE WART TISSUE/MAX OF FOUR CYCLES) No podofilox 0.5 % topical solution APPLY BY TOPICAL ROUTE 2 TIMES PER DAY FOR 3 DAYS THEN STOP FOR 4 DAYS. (REPEAT 7DAY CYCLE UNTIL NO VISIBLE WART TISSUE/MAX OF FOUR CYCLES) [facility] diclofenac 1 % topical gel APPLY 2 GRAMS TO THE AFFECTED AREA(S) BY TOPICAL ROUTE 4 TIMES PER DAY diclofenac 1 % topical gel APPLY 2 GRAMS TO THE AFFECTED AREA(S) BY TOPICAL ROUTE 4 TIMES PER DAY No diclofenac 1 % topical gel APPLY 2 GRAMS TO THE AFFECTED AREA(S) BY TOPICAL ROUTE 4 TIMES PER DAY [facility] doxazosin 1 mg tablet Take 1 tablet every day by oral route in the evening for 30 days. doxazosin 1 mg tablet Take 1 tablet every day by oral route in the evening for 30 days. No 1 Q1D doxazosin 1 mg tablet Take 1 tablet every day by oral route in the evening for 30 days. [facility] gabapentin 300 mg capsule Take 1 capsule 3 times a day by oral route for 90 days. gabapentin 300 mg capsule Take 1 capsule 3 times a day by oral route for 90 days. No 1capsul e(s) TID gabapentin 300 mg capsule Take 1 capsule 3 times a day by oral route for 90 days. [facility] lisinopril 10 mg tablet Take 1 tablet every day by oral route. lisinopril 10 mg tablet Take 1 tablet every day by oral route. No 1 Q1D lisinopril 10 mg tablet Take 1 tablet every day by oral route. [facility] methocarbam ol 750 mg tablet Take 1 tablet 3 times a day by oral route as needed. methocarbam ol 750 mg tablet Take 1 tablet 3 times a day by oral route as needed. No 1 TID methocarba mol 750 mg tablet Take 1 tablet 3 times a day by oral route as needed. [facility] lisinopril 20 mg tablet TAKE 1 TABLET BY MOUTH ONCE DAILY lisinopril 20 mg tablet TAKE 1 TABLET BY MOUTH ONCE DAILY No 1 Q1D lisinopril 20 mg tablet TAKE 1 TABLET BY MOUTH ONCE DAILY [facility] tramadol 100 mg tablet Take 1 tablet every 8 hours by oral route as needed. tramadol 100 mg tablet Take 1 tablet every 8 hours by oral route as needed. No 1 Q8H tramadol 100 mg tablet Take 1 tablet every 8 hours by oral route as needed. [facility] gabapentin 300 mg capsule Take 1 capsule 3 times a day by oral route for 90 days. gabapentin 300 mg capsule Take 1 capsule 3 times a day by oral route for 90 days. No 1capsul e(s) TID gabapentin 300 mg capsule Take 1 capsule 3 times a day by oral route for 90 days. [facility] methocarbam ol 500 mg tablet TAKE 1 TABLET BY MOUTH THREE TIMES DAILY NEEDED methocarbam ol 500 mg tablet TAKE 1 TABLET BY MOUTH THREE TIMES DAILY NEEDED No 1 TID methocarba mol 500 mg tablet TAKE 1 TABLET BY MOUTH THREE TIMES DAILY NEEDED [facility] metoprolol succinate ER 25 mg tablet,exte nded release 24 hr Take 1 tablet every day by oral route for 30 days. metoprolol succinate ER 25 mg tablet,exte nded release 24 hr Take 1 tablet every day by oral route for 30 days. No 1 Q1D metoprolol succinate ER 25 mg tablet,ext ended release 24 hr Take 1 tablet every day by oral route for 30 days. [facility] Vital Signs Vital Name Observation Time Observation Value Comments S ource Body Weight 2024-01-21 00:00:00 2704 [oz_av] [facility] BP Diastolic 2024-01-21 00:00:00 130 mm[Hg] [facility] BMI (Body Mass Index) 2024-01-21 00:00:00 22.9 kg/m2 [facility] Height 2024-01-21 00:00:00 72 [in_i] [facility] BP Systolic 2024-01-21 00:00:00 233 mm[Hg] [facility] BP Diastolic 2023-11-26 00:00:00 123 mm[Hg] [facility] Body Weight 2023-11-26 00:00:00 2720 [oz_av] [facility] Height 2023-11-26 00:00:00 72 [in_i] [facility] BMI (Body Mass Index) 2023-11-26 00:00:00 23.1 kg/m2 [facility] BP Systolic 2023-11-26 00:00:00 159 mm[Hg] [facility] BP Diastolic 2023-01-20 00:00:00 103 mm[Hg] [facility] Height 2023-01-20 00:00:00 71 [in_i] [facility] BMI (Body Mass Index) 2023-01-20 00:00:00 23.4 kg/m2 [facility] BP Systolic 2023-01-20 00:00:00 153 mm[Hg] [facility] Body Weight 2023-01-20 00:00:00 167.8 [lb_av] [facility] BP Diastolic 2022-12-27 00:00:00 101 mm[Hg] [facility] Height 2022-12-27 00:00:00 71 [in_i] [facility] BMI (Body Mass Index) 2022-12-27 00:00:00 23.8 kg/m2 [facility] BP Systolic 2022-12-27 00:00:00 155 mm[Hg] [facility] Body Weight 2022-12-27 00:00:00 170.7 [lb_av] S [facility] Height 2021-11-07 00:00:00 71 [in_i] [facility] BP Diastolic 2021-10-30 00:00:00 88 mm[Hg] [facility] Height 2021-10-30 00:00:00 71 [in_i] [facility] BMI (Body Mass Index) 2021-10-30 00:00:00 22.4 kg/m2 [facility] BP Systolic 2021-10-30 00:00:00 140 mm[Hg] [facility] Body Weight 2021-10-30 00:00:00 160.7 [lb_av] [facility] Systolic blood pressure 2021-04-28 17:50:00 171 mm[Hg] [facility] Diastolic blood pressure 2021-04-28 17:50:00 100 mm[Hg] [facility] Heart rate 2021-04-28 17:50:00 101 /min [facility] Body temperature 2021-04-28 17:50:00 37.5 Melvi [facility] Respiratory rate 2021-04-28 17:50:00 18 /min [facility] Body weight 2021-04-28 17:50:00 77.111 kg [facility] Oxygen saturation in Arterial blood by Pulse oximetry 2021-04-28 17:50:00 99 /min [facility] Systolic blood pressure 2019-12-11 15:42:00 163 mm[Hg] [facility] Diastolic blood pressure 2019-12-11 15:42:00 100 mm[Hg] [facility] Heart rate 2019-12-11 15:42:00 93 /min [facility] Body temperature 2019-12-11 15:42:00 36.94 Melvi [facility] Respiratory rate 2019-12-11 15:42:00 18 /min [facility] Body weight 2019-12-11 15:42:00 77.097 kg [facility] Oxygen saturation in Arterial blood by Pulse oximetry 2019-12-11 15:42:00 96 /min [facility] Procedures Procedure Date / Time Performed Performing Clinician Source electrocardiogram, routine ECG, 12 leads min 2024-01-21 00:00:00 [facility] NOTICE OF PRIVACY PRACTICES 2021-04-28 17:46:25 Doctor Unassigned, Callery [facility] CONSENT/REFUSAL FOR DIAGNOSIS AND TREATMENT 2021-04-28 17:44:03 Doctor Unassigned, Callery [facility] Hand Surgery [facility] Hip Surgery [facility] Unlisted Procedure Pancreas [facility] Hip Arthroscopy Dx [facility] Pancreatectomy [facility] Plan of Care Planned Activity Planned Date Details Comments Source Diagnostic Test Pending 2022-12-27 00:00:00 fecal occult blood, immunoassay, stool [code = fecal occult blood, immunoassay, stool] [facility] Diagnostic Test Pending 2022-12-27 00:00:00 PSA, serum or plasma [code = PSA, serum or plasma] [facility] Diagnostic Test Pending 2022-12-27 00:00:00 HIV (1+2) Ab screen, serum [code = HIV (1+2) Ab screen, serum] [facility] Diagnostic Test Pending 2022-12-27 00:00:00 CBC w/ auto diff [code = CBC w/ auto diff] [facility] Diagnostic Test Pending 2022-12-27 00:00:00 CMP, serum or plasma [code = CMP, serum or plasma] [facility] Diagnostic Test Pending 2022-12-27 00:00:00 HbA1c (hemoglobin A1c), blood [code = HbA1c (hemoglobin A1c), blood] [facility] Diagnostic Test Pending 2022-12-27 00:00:00 lipid panel, serum [code = lipid panel, serum] [facility] Diagnostic Test Pending 2022-12-27 00:00:00 vitamin D, 25-hydroxy, total, serum [code = vitamin D, 25-hydroxy, total, serum] [facility] Diagnostic Test Pending 2022-12-27 00:00:00 PSA, serum or plasma [code = PSA, serum or plasma] [facility] Diagnostic Test Pending 2022-12-27 00:00:00 TSH, ultra-sensitive, serum [code = TSH, ultra-sensitive, serum] [facility] Diagnostic Test Pending 2022-12-27 00:00:00 hepatitis C virus Ab, serum [code = hepatitis C virus Ab, serum] [facility] Instructions [facility] Encounters Start Date/Time End Date/Time Encounter Type Admission Type Attending [facility] Facility Care Department Encounter ID Source 2024-01-21 00:00:00 2024-01-21 00:00:00 DEMETRIO Draper C: [address] [place] [address], [address] [address] , Ph. [facility] [id number] 0626 [facility] 2023-11-26 00:00:00 2023-11-26 00:00:00 DEMETRIO Draper C: [address] [facility], [address] [place] [address] , Ph. [facility] [address] [facility] 2023-05-09 00:00:00 2023-05-09 00:00:00 Outpatient GALLOWAY_C SJOSE SJOSE [id number] [facility] 2023-01-20 00:00:00 2023-01-20 00:00:00 Outpatient GALLOWAY_C SJOSE SJOSE [id number] [facility] 2023-01-20 00:00:00 2023-01-20 00:00:00 Rony Madrigal MD: [address] [place] [address] , Ph. SJOSE [facility] [id number] [facility] 2022-12-27 00:00:00 2022-12-27 00:00:00 Outpatient GALLOWAY_C SJOSE SJOSE [id number] [facility] 2022-12-27 00:00:00 2022-12-27 00:00:00 Outpatient GALLOWAY_C SJOSE SJOSE 601 [facility] 2022-12-27 00:00:00 2022-12-27 00:00:00 Geetha Arce, POURED CONCRETE WALL TECHNICIAN: [address] [place] [address] , Ph. SJOSE [facility] [id number] [facility] 2022-06-05 00:00:00 2022-06-05 00:00:00 Outpatient GALLOWAY_C SJOSE SJOSE [id number] [facility] 2022-05-08 00:00:00 2022-05-08 00:00:00 Outpatient GALLOWAY_C SJOSE SJOSE [id number] [facility] 2021-11-08 01:48:00 2021-11-08 01:48:00 Outpatient GALLOWAY_C SJOSE SJOSE [id number] [facility] 2021-11-07 11:44:00 2021-11-07 11:44:00 Outpatient GALLOWAY_C SJOSE SJOSE [id number] [facility] 2021-11-07 00:00:00 2021-11-07 00:00:00 Geetha Arce, POURED CONCRETE WALL TECHNICIAN: [address] [place] [address] , Ph. SJOSE [facility] Edwin [id number] [facility] 2021-10-30 04:03:00 2021-10-30 04:03:00 Outpatient GALLOWAY_C [facility] 404 [facility] 2021-10-30 04:03:00 2021-10-30 04:03:00 Outpatient GALLOWAY_C [facility] 405 [facility] 2021-10-30 00:00:00 2021-10-30 00:00:00 Geetha Arce, POURED CONCRETE WALL TECHNICIAN: [address] [place] [address] , Ph. SJOSE [facility] Pineda [id number] [facility] 2021-10-18 12:23:00 2021-10-18 12:23:00 Outpatient GALLOWAY_C [facility] [id number] [facility] 2021-04-28 12:52:00 2021-04-28 13:45:00 Emergency Nicole Blackwell [facility] [id number] [facility] 2021-04-28 12:44:00 2021-04-28 12:44:00 Emergency X [facility] [id number] [facility] 2021-04-28 00:00:00 2021-04-28 00:00:00 Orders Only Doctor Unassigned, Callery [facility] [id number] [facility] 2019-12-11 10:45:33 2019-12-11 12:08:00 Emergency Janay Mccullough [facility] [id number] [facility] 2019-12-11 10:45:33 2019-12-11 10:45:33 Emergency X JANAY MCCULLOUGH DEMB ERT [id number] [facility] Results Test Description Test Time Test Comments Results Result Co mments Source [facility] W Auto Differential panel - [id number] 00:00:00* Test Item Value Reference Range Interpretation Comme nts Leukocytes [#/volume] in Blo od by Automated count (test code = 6690-2) 12.4 x10e3/uL 3.4-10.8 H Erythrocytes [#/volume] in Blood by Automated count (test code = 789-8) 4.59 x10e6/uL 4.14-5.80 Hemoglobin [Mass/volume] in Blood (test code = 718-7) 14.8 g/dL 13.0-17.7 Hematocrit [Volume Fraction] of Blood by Automated count (test code = 4544-3) 43.7 % 37.5-51.0 Erythrocyte mean corpuscular volume [Entitic volume] by Automated count (test code = 787-2) 95 fL 79-97 MCH [Entitic mass] by Automa tiffanie count (test code = 785-6) 32.2 pg 26.6-33.0 Erythrocyte mean corpuscular hemoglobin concentration [Mass/volume] by Automated count (test code = 786-4) 33.9 g/dL 31.5-35.7 Erythrocyte distribution wid th [Ratio] by Automated count (test code = 788-0) 12.9 % 11.6-15.4 Platelets [#/volume] in Bloo d by Automated count (test code = 777-3) 226 x10e3/uL 150-450 Neutrophils/100 leukocytes i n Blood by Automated count (test code = 770-8) 65 % not estab. Lymphocytes/100 leukocytes i n Blood by Automated count (test code = 736-9) 21 % not estab. Monocytes/100 leukocytes in Blood by Automated count (test code = 5905-5) 12 % not estab. Eosinophils/100 leukocytes i n Blood by Automated count (test code = 713-8) 1 % not estab. Basophils/100 leukocytes in Blood by Automated count (test code = 706-2) 1 % not estab. immature cells (test code = immature cells) band lining bander Neutrophils [#/volume] in Bl ood by Automated count (test code = 751-8) 8.1 x10e3/uL 1.4-7.0 H Lymphocytes [#/volume] in Bl ood by Automated count (test code = 731-0) 2.6 x10e3/uL 0.7-3.1 Monocytes [#/volume] in Bloo d by Automated count (test code = 742-7) 1.5 x10e3/uL 0.1-0.9 H Eosinophils [#/volume] in Bl ood by Automated count (test code = 711-2) 0.1 x10e3/uL 0.0-0.4 Basophils [#/volume] in Bloo d by Automated count (test code = 704-7) 0.1 x10e3/uL 0.0-0.2 Immature granulocytes/100 leukocytes in Blood by Automated count (test code = 53936-7) 0 % not estab. Immature granulocytes [#/volume] in Blood by Automated count (test code = 82131-5) 0.0 x10e3/uL 0.0-0.1 Nucleated erythrocytes/100 leukocytes [Ratio] in Blood by Automated count (test code = 22161-9) band lining bander Morphology [Interpretation] in Blood Narrative (test code = 56137-8) band lining bander [facility] - Serum or [id number] 00:00:00* Test Item Value Reference Range Interpretation Comme nts Glucose [Mass/volume] in Ser um or Plasma (test code = 2345-7) 84 mg/dL 65-99 Urea nitrogen [Mass/volume] in Serum or Plasma (test code = 3094-0) 18 mg/dL 6-24 Creatinine [Mass/volume] in Serum or Plasma (test code = 2160-0) 1.22 mg/dL 0.76-1.27 eGFR (test code = eGFR) 70 mL/min/1.73 >59 Urea nitrogen/Creatinine [Ma ss Ratio] in Serum or Plasma (test code = 3097-3) 15 9-20 Sodium [Moles/volume] in Ser um or Plasma (test code = 2951-2) 140 mmol/L 134-144 Potassium [Moles/volume] in Serum or Plasma (test code = 2823-3) 4.6 mmol/L 3.5-5.2 Chloride [Moles/volume] in Serum or Plasma (test code = 5-0) 103 mmol/L 96-106 Carbon dioxide, total [Moles/volume] in Serum or Plasma (test code = 2027-) 17 mmol/L 20-29 L Calcium [Mass/volume] in Ser um or Plasma (test code = 14968-3) 9.7 mg/dL 8.7-10.2 Protein [Mass/volume] in Ser um or Plasma (test code = 2885-2) 7.0 g/dL 6.0-8.5 Albumin [Mass/volume] in Ser um or Plasma (test code = 1751-7) 4.7 g/dL 3.8-4.9 Globulin [Mass/volume] in Serum by calculation (test code = 95750-9) 2.3 g/dL 1.5-4.5 Albumin/Globulin [Mass Ratio ] in Serum or Plasma (test code = 1759-0) 2.0 1.2-2.2 Bilirubin.total [Mass/volume ] in Serum or Plasma (test code = 1974-2) 0.3 mg/dL 0.0-1.2 Alkaline phosphatase [Enzymatic activity/volume] in Serum or Plasma (test code = 6768-6) 94 IU/L 44-121 Aspartate aminotransferase [Enzymatic activity/volume] in Serum or Plasma (test code = 192-8) 17 IU/L 0-40 Alanine aminotransferase [Enzymatic activity/volume] in Serum or Plasma (test code = 1742-6) 13 IU/L 0-44 [facility] - Serum or [id number] 00:00:00* Test Item Value Reference Range Interpretation Comme nts Cholesterol [Mass/volume] in Serum or Plasma (test code = 2093-3) 207 mg/dL 100-199 H Triglyceride [Mass/volume] i n Serum or Plasma (test code = 2571-8) 86 mg/dL 0-149 Cholesterol in HDL [Mass/vol ume] in Serum or Plasma (test code = 2085-9) 86 mg/dL >39 Cholesterol in VLDL [Mass/vo lume] in Serum or Plasma by calculation (test code = 12431-6) 15 mg/dL 5-40 Cholesterol in LDL [Mass/vol ume] in Serum or Plasma by calculation (test code = 21723-2) 106 mg/dL 0-99 H Laboratory comment [Text] in Report Narrative (test code = 05177-4) band [facility]em[facility].total in [id number] 00:00:00* Test Item Value Reference Range Interpretation Comme nts Hemoglobin A1c/Hemoglobin.to herman in Blood (test code = 4548-4) 5.3 % 4.8-5.6 [facility] in Serum or Plasma by Detection limit <= 0.005 mIU/[id number] 00:00:00* Test Item Value Reference Range Interpretation Comme nts Thyrotropin [Units/volume] i n Serum or Plasma by Detection limit <= 0.005 mIU/L (test code = 13019-5) 1.350 uIU/mL 0.450-4.500 [facility]
[2024-01-21] MEDS ORDERED: LORazepam 2 MG/ML VIAL ONE (11:00)
[2024-01-21] MEDS ORDERED: FAMOTIDINE 20 MG/2 ML VIAL IV ONE (11:01)
[2024-01-21] MEDS ORDERED: LABETALOL HCL 100 MG/20 ML ONE (11:01)
[2024-01-21] MEDS ORDERED: LABETALOL HCL 100 MG TAB ONE (11:01)
[2024-01-21] MEDS ORDERED: NA CHLORIDE 0.9% 500 ML ONE (11:02)
[2024-01-21] MEDS ORDERED: NA CHLORIDE 0.9% 1,000 ML ONE (11:02)
[2024-01-21 11:19] LABS: Absolute Basophils 0.1 K/uL (0-0.5); Absolute Neutrophil 5.6 K/uL (1.8-8.0); Basophils % 0.8 % (0-1.3); Eosinophils % 0.3 % (0-4.4); Hematocrit 44.7 % (39.6-49.0); Hemoglobin 15.1 g/dL (13.6-17.9); MCH 33.9 pg (27.0-35.0); MCHC 33.9 g/dL (32.0-36.0); MCV 100.1 fL (80-100); MPV 8.9 fL (7.6-11.3); Monocytes % 13.2 % (3.3-12.3); Neutrophils % 72.7 % (41.7-73.7); Nucleated Red Blood Cells % 0.1 % (0-0); Platelets 214 thou/uL (152-406); RBC Red Blood Cell Count 4.46 M/uL (4.33-5.43)
[2024-01-21 11:35] LABS: Specific Gravity < 1.005 (1.005-1.030); Urine Bilirubin NEGATIVE (Negative); Urine Blood Negative (Negative); Urine Clarity Clear (Clear); Urine Color Colorless (Yellow); Urine Glucose NEGATIVE (Negative); Urine Ketones NEGATIVE (Negative); Urine Microscopic Reflex YN NO UMIC; Urine Nitrite NEGATIVE (Negative); Urine Protein NEGATIVE (Negative); Urine Urobilinogen Normal (Normal); Urine pH 6.5 (5.0-7.0)
--- NOTE | 2024-01-21 12:02 | RAD REPORT ---
EXAM DESCRIPTION: [place] Single View01/21/2024 11:12 am CLINICAL HISTORY: Chest pain COMPARISON: 2017 FINDINGS: The lungs appear clear of acute infiltrate. The heart is normal size IMPRESSION: No acute abnormalities displayed
[2024-01-21 12:29] LABS: Thyroid Stimulating Hormone 1.03 uIU/mL (0.358-3.740); Troponin High Sensitivity 7.2 pg/mL (<58.9)
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
[2024-01-21] MEDS ORDERED: MORPHINE 4 MG/ML SYR ONE (14:16)
[2024-01-21] MEDS ORDERED: AMLODIPINE 10 MG TAB ONE (14:16)
[2024-01-21] MEDS ORDERED: lisinopriL 10 MG TAB ONE (14:16)
[2024-01-21] MEDS ORDERED: ONDANSETRON 4 MG/2 ML VIAL ONE (14:16)
--- NOTE | 2024-01-21 14:59 | RAD REPORT ---
EXAM DESCRIPTION: CTAngio Aorta For Dissection - 01/21/2024 2:46 pm CLINICAL HISTORY: DISSECTION COMPARISON: No comparisons TECHNIQUE: CTA of the chest, abdomen, and pelvis was performed with IV contrast. 3D maximum intensit y pixel (MIP) reconstructions were created All CT scans are performed using dose optimization technique as appropriate and may include automated exposure control or mA/KV adjustment according to patient size. FINDINGS: Thorax: Chest Wall: No abnormal mass Lungs: No acute abnormality. Pleura: No effusions or pneumothorax. Mary Jo/Mediastinum: No lymphadenopathy. Mild circumferential thickened distal esophagus could reflect m ild esophagitis. Aorta/Pulmonary Arteries: Unremarkable. No aortic aneurysm. Atherosclerotic changes. Heart: Normal size. Coronary artery calcifications. Abdomen/Pelvis: Liver: No acute abnormality or suspicious lesions. Biliary: No biliary ductal dilatation. Stomach: No significant focal abnormality. Duodenum: No significant focal abnormality. Pancreas: No significant abnormality. Spleen: No significant abnormality. Adrenal: No suspicious lesions. Kidney/ureter: No hydronephrosis. No renal calculi. Retroperitoneum: No retroperitoneal adenopathy. Vascular: No aneurysm. Atherosclerosis including moderate iliac artery calcifications likely reflecti ng at least mild and possibly moderate stenoses. Bowel: No significant focal abnormality. Peritoneum: No ascites or free air. Bladder: Nonspecific distended bladder. Reproductive: No adnexal masses. Bones: No acute fracture. Intramedullary moose in the right femur. Grade 1 anterolisthesis of L4 on L5. Mild compression deformity at T4 is chronic appearance. Other: n/a IMPRESSION: No aortic aneurysm, aortic dissection, or pulmonary embolus identified. Incidental findi ngs as noted above. No acute findings identified. .
[2024-01-21] MEDS ORDERED: ACETAMINOPHEN 500 MG TAB PO PRN (16:37)
[2024-01-21] MEDS ORDERED: NITROGLYCERIN 0.4 MG/TAB SL PRN (16:37)
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
[2024-01-21 18:29] LABS: Troponin High Sensitivity 10.5 pg/mL (<58.9)
[2024-01-21 18:30] LABS: Albumin 3.2 g/dL (3.4-5.0); Albumin/Globulin Ratio 1.1 (1.1-1.8); Bilirubin Direct 0.2 mg/dL (0-0.2); Bilirubin Indirect, Calculated 0.4 mg/dL (0.2-0.8); Bilirubin Total 0.6 mg/dL (0.2-1.0); Globulin 2.9 g/dL (2.3-3.5); Protein, Total 6.1 g/dL (6.4-8.2)
[2024-01-21] MEDS: HYDROCODONE/APAP 5/325 MG TAB PO PRN (21:37)
[2024-01-21] MEDS: AMLODIPINE 10 MG TAB PO SCH (21:38)
[2024-01-21] MEDS: METOPROLOL TAR 50 MG TAB PO SCH (21:39)
[2024-01-22 03:17] VITALS: BMI 3319.7
[2024-01-22 07:16] LABS: Absolute Basophils 0.1 K/uL (0-0.5); Absolute Eosinophils 0.1 K/uL (0-0.5); Absolute Neutrophil 5.7 K/uL (1.8-8.0); Basophils % 0.8 % (0-1.3); Hematocrit 47.2 % (39.6-49.0); Hemoglobin 16.2 g/dL (13.6-17.9); Lymphocytes % 12.7 % (15.3-44.8); MCH 34.2 pg (27.0-35.0); MCHC 34.3 g/dL (32.0-36.0); MCV 99.7 fL (80-100); MPV 9.5 fL (7.6-11.3); Monocytes % 13.2 % (3.3-12.3); Neutrophils % 72.3 % (41.7-73.7); Nucleated Red Blood Cells % 0.1 % (0-0); Platelets 219 thou/uL (152-406); RBC Red Blood Cell Count 4.73 M/uL (4.33-5.43); Red Cell Distribution Width 14.2 % (12.1-15.2)
[2024-01-22] MEDS: lisinopriL 20 MG TAB PO SCH (09:14)
[2024-01-22] MEDS: ASPIRIN EC 81 MG TAB PO SCH (09:14)
[2024-01-22] MEDS: ENOXAPARIN 40 MG/0.4 ML SQ SCH (09:14)
[2024-01-22] MEDS: MORPHINE 4 MG/ML SYR IV PRN (09:15)
[2024-01-22 10:28] LABS: Troponin High Sensitivity 7.4 pg/mL (<58.9)
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
--- NOTE | 2024-01-22 14:11 | EKG ---
Test Date: 2024-01-21 Test Time: 10:43:57 Rn Support Services: ELDER MEASUREMENT RESULTS: Intervals: Rate: 92 GA: 218 QRSD: 94 QT: 376 QTc: 464 Maria Stein: P: 52 GA: 218 QRS: -6 T: 7 INTERPRETIVE STATEMENTS: Sinus rhythm with 1st degree AV block Anteroseptal infarct, age undetermined Abnormal ECG Compared to ECG 01/20/2018 11:47:27 First degree AV block now present Left-axis deviation no longer present Myocardial infarct finding still present Electronically Signed On 01-22-24 14:07:27 CDT by Sumeet Palma
--- NOTE | 2024-01-22 16:00 | P.PN ---
Subjective Date of Service: 01/22/24 Chief Complaint: Chest pain Patient has no complaints. He currently denies any chest pain. His blood pressure has improved significantly. Physical Examination - Vital Signs Temperature: 97.9 F Blood Pressure: 141/79 Pulse: 65 Respirations: 16 Pulse Ox (%): 98 - Physical Exam General: Alert, In no apparent distress, Oriented x3 HEENT: Mucous membr. moist/pink, Sclerae nonicteric Neck: Supple, JVD not distended Respiratory: Clear to auscultation bilaterally, Normal air movement Cardiovascular: No edema, Regular rate/rhythm, Normal S1 S2, No murmurs Gastrointestinal: Normal bowel sounds, Soft and benign, Non-distended, No tenderness Musculoskeletal: No swelling, No tenderness Integumentary: No rashes, No cyanosis Neurological: Normal speech, Normal strength at 5/5 x4 extr, Cranial nerves 3-12 intact Assessment And Plan - Current Problems (Diagnosis) (1) Chest pain Current Visit: Yes Status: Acute (2) Hypertensive urgency Current Visit: Yes Status: Acute (3) Chronic back pain Current Visit: Yes Status: Acute (4) Hyponatremia Current Visit: Yes Status: Acute - Plan Chest pain Hypertensive urgency Chest pain is likely related to severe hypertension. Troponin trended negative. ACS ruled out. Cardiology Dr. Vivas input appreciated. Blood pressure readings have improved on amlodipine, lisinopril and metoprolol Patient reports skipping doses at times. IV labetalol as needed for BP spikes. Echocardiogram is pending. Dr. Vivas recommends stress test in a.m. Patient has been advised to quit drinking alcohol and to stop smoking. Chronic back pain History of degenerative lumbar spine disease. Analgesics as needed. Hyponatremia Suspect secondary to diuretic use. Stable Monitor BMP. Tobacco use Smoking cessation advised. DVT prophylaxis: Lovenox.
[2024-01-23 07:36] LABS: Anion Gap 10.2 mEq/L (5.0-15.0); Potassium 4.2 mEq/L (3.5-5.1)
--- NOTE | 2024-01-23 08:04 | ECHO ---
HEIGHT: 0 ft 6 in WEIGHT: 170 lb 0 oz DATE OF STUDY: 01/22/[address]: Joel Fonseca MD 2-DIMENSIONAL: YES M.MODE: YES DOPPLER: YES COLOR FLOW: YES TDS: PORTABLE: YES DEFINITY: BUBBLE STUDY: DIAGNOSIS: CHEST PAIN/ SEVERE HYPERTENSION CARDIAC HISTORY: CATHERIZATION: SURGERY: PROSTHETIC VALVE: PACEMAKER: MEASUREMENTS (cm) DIASTOLIC (NORMALS) SYSTOLIC (NORMALS) IVSd 1.1 (0.6-1.2) LA Diam 3.3 (1.9-4.0) LVEF 60-65% LVIDd 4.1 (3.5-5.7) LVIDs 2.6 (2.0-3.5) %FS 37% LVPWd 1.4 (0.6-1.2) Ao Diam 3.6 (2.0-3.7) 2 DIMENSIONAL ASSESSMENT: RIGHT ATRIUM: NORMAL LEFT ATRIUM: NORMAL RIGHT VENTRICLE: NORMAL LEFT VENTRICLE: LEFT VENTRICULAR HYPERTROPHY TRICUSPID VALVE: NORMAL MITRAL VALVE: MILD MITRAL REGURGITATION PULMONIC VALVE: NORMAL AORTIC VALVE: CALCIFIED, NO AORTIC STENOSIS PERICARDIAL EFFUSION: NONE AORTIC ROOT: NORMAL LEFT VENTRICULAR WALL MOTION: NORMAL DOPPLER/COLOR FLOW: SEE BELOW COMMENTS: 1. NORMAL LEFT VENTRICULAR EJECTION FRACTION 60-65% WITH NORMAL WALL MOTION 2. MILD CONCENTRIC LEFT VENTRICULAR HYPERTROPHY 3. MILD MITRAL REGURGITATION 4. GRADE I DIASTOLIC DYSFUNCTION TECHNOLOGIST: ANGELICA LEVINE
[2024-01-23] MEDS ORDERED: REGADENOSON 0.4 MG/5 ML SYR IV ONE (10:08)
--- NOTE | 2024-01-23 12:29 | RAD REPORT ---
EXAM DESCRIPTION: NM - Rest Stress Cardiac Imaging - 01/23/2024 10:36 am CLINICAL HISTORY: Chest pain Chest pain. COMPARISON: No comparisons TECHNIQUE: The patient was administered approximately 10.2 mCi of Tc 99m Sestamibi prior to resting SPECT imaging of the heart. The patient was then administered approximately 29.5 mCi of Tc 99m Sestam ibi following exercise or pharmacologic stress. Multiplanar SPECT images were reviewed. FINDINGS: Small reversible defect along the apical segment of the lateral wall. No fixed defect is s een to suggest hibernating myocardium or scarred myocardium, although moderate tracer attenuation on both rest and stress images along the inferior wall is appreciated, which may be artifactual, related to splanchnic uptake. The end diastolic volume is 108 ml, the end systolic volume is 51 ml, and the ejection fraction is 53 %. IMPRESSION: Small reversible defect along the apical segment of the lateral wall, suggesting a regio n of ischemia. No definite fixed defect to suggest an infarct. Normal left ventricular ejection fraction, 53%.
--- NOTE | 2024-01-23 13:20 | P.PN ---
Subjective Date of Service: 01/23/24 Chief Complaint: Chest pain Subjective: No new changes, No C/O voiced, Tolerating diet, Ambulating, Improving Review of Systems 10-point ROS is otherwise unremarkable Physical Examination - Vital Signs Temperature: 97.2 F Blood Pressure: 150/90 Pulse: 59 Respirations: 18 Pulse Ox (%): 100 - Physical Exam General: Alert, In no apparent distress HEENT: Atraumatic, PERRLA, EOMI Neck: Supple, JVD not distended Respiratory: Clear to auscultation bilaterally, Normal air movement Cardiovascular: Regular rate/rhythm, Normal S1 S2 Gastrointestinal: Normal bowel sounds, No tenderness Musculoskeletal: No tenderness Integumentary: No rashes Neurological: Normal speech, Normal tone, Normal affect Lymphatics: No axilla or inguinal lymphadenopathy - Studies Medications List Reviewed: Yes Assessment And Plan - Current Problems (Diagnosis) (1) Chest pain Current Visit: Yes Status: Acute Plan: patient had an abnormal stress test, plan for coronary angiogram. (2) Hypertensive urgency Current Visit: Yes Status: Acute Plan: Continue lopressor 50 mg po BID Continue Lisinopril 20 mg daily Continue Norvasc 10 mg daily (3) Hyponatremia Current Visit: Yes Status: Acute Plan: Continue to monitor.
[2024-01-23] MEDS ORDERED: HEPA 1000U/500MLS 2,000 UNIT/1,000 ML BAG IV ONE ×2 (13:37→15:25)
[2024-01-23] MEDS ORDERED: LIDOCAINE 1% 20 ML MDV ONE ×2 (13:37→15:25)
[2024-01-23] MEDS: NA CHLORIDE 0.9% 500 ML ONE (15:20)
[2024-01-23] MEDS ORDERED: FENTANYL CITR 100 MCG/2 ML ONE (15:27)
[2024-01-23] MEDS ORDERED: MIDAZOLAM HCL 2 MG/2 ML INJ ONE (15:27)
[2024-01-23] MEDS ORDERED: HEPARIN 5000 UNIT/ML 1 ML VIAL ONE (16:15)
[2024-01-23] MEDS ORDERED: ASPIRIN 325 MG TAB ONE (17:06)
[2024-01-23] MEDS ORDERED: TICAGRELOR 90 MG TABLET PO ONE (17:06)
[2024-01-23] MEDS ORDERED: CLOPIDOGREL 75 MG TABLET ONE ×2 (18:17→18:18)
--- NOTE | 2024-01-23 18:34 | P.PN ---
Subjective Date of Service: 01/23/24 Chief Complaint: Chest pain Patient has no new complaints. He currently denies any chest pain. He has been moderately hypertensive. Physical Examination - Vital Signs Temperature: 97.0 F Blood Pressure: 158/99 Pulse: 72 Respirations: 16 Pulse Ox (%): 100 - Physical Exam General: Alert, In no apparent distress, Oriented x3 HEENT: Mucous membr. moist/pink Neck: Supple, JVD not distended Respiratory: Clear to auscultation bilaterally, Normal air movement Cardiovascular: No edema, Regular rate/rhythm, Normal S1 S2 Gastrointestinal: Normal bowel sounds, Soft and benign, Non-distended, No tenderness Musculoskeletal: No swelling Integumentary: No rashes, No cyanosis Neurological: Normal strength at 5/5 x4 extr - Studies Laboratory Data (last 24 hrs) 01/23/24 07:12 Sodium 132 L Potassium 4.2 BUN 12 Creatinine 0.94 Glucose 97 Medications List Reviewed: Yes Assessment And Plan - Current Problems (Diagnosis) (1) Chest pain Current Visit: Yes Status: Acute (2) Hypertensive urgency Current Visit: Yes Status: Acute (3) Chronic back pain Current Visit: Yes Status: Acute (4) Hyponatremia Current Visit: Yes Status: Acute - Plan Chest pain Hypertensive urgency Chest pain is likely related to severe hypertension. Troponin trended negative. ACS ruled out. Cardiology Dr. Vivas is following. Nuclear stress test done showed small stress-induced ischemia. Dr. Vivas scheduled patient for cardiac cath today Blood pressure readings have improved on amlodipine, lisinopril and metoprolol Patient reports skipping doses at times. IV labetalol as needed for BP spikes. Patient has been advised to quit drinking alcohol and to stop smoking. Chronic back pain History of degenerative lumbar spine disease. Analgesics as needed. Hyponatremia Suspect secondary to diuretic use. Stable Monitor BMP. Tobacco use Smoking cessation advised. DVT prophylaxis: Lovenox.
[2024-01-23] MEDS: MORPHINE 4 MG/ML SYR ONE (20:21)
[2024-01-23] MEDS: ATORVASTATIN 40 MG TAB PO SCH (21:30)
--- NOTE | 2024-01-24 02:08 | OP ---
Date of Procedure: 01/23/2024 Surgeon: Emir Vivas Procedure Performed: 1.Left heart catheterization. 2.Selective coronary angiogram. 3.PCI of the OM1 with Synergy 3.5 x 38 mm drug-eluting stent. 4.PCI of the LAD with Synergy 3.0 x 20 mm drug-eluting stent. Indication For Procedure: Unstable angina, abnormal stress test. Access: Right radial, closed by TR band. Complications: None. Estimated Blood Loss: Less than 50 cc. Sedation Time: 30 minutes with 1 of Versed and 50 of fentanyl. Description Of Procedure: After risks, benefits, and alternatives were explained to the patient, the patient agreed to proceed with the procedure and signed informed consent. The patient was brought b ack to the nitriles lab technician, prepped and draped in sterile fashion. Time-out was performed. Sedation was ad ministered. Right radial access, ultrasound-guided micropuncture technique was obtained. Next, a Ti yajaira 4 5-[place] catheter was advanced over a J-wire to the LV cavity. LVEDP was obtained. Pullback d id not show any gradients. Same catheter was used for selective angiogram of the left and right yves nary systems. The catheter was later exchanged for an EBU 3.5 mm guide. Heparin was administered. ACT was therapeutic. Runthrough wire from the left circ into the OM. Pre-dilated the lesions with 3 .0 mm NC balloon. Next, Synergy 3.5 x 38 mm drug-eluting stent was placed across the left circ into the OM1, that was postdilated with an NC 4.0 mm balloon. Then, the run-through wire was redirected i nto the LAD. Mid LAD lesion was pre-dilated with an NC 3.0 mm balloon. Next, Synergy 3.[address] x [address]-eluting stent was placed across the lesion that was postdilated with a 3.25 mm NC balloon. Final angiogram shows JODIE-3 flow. Wire was removed and catheter was removed. Sheath was removed and acce ss was closed with a TR band. Findings: 1.Left main is normal. 2.LAD, mid 70% diseased, status post PCI with Synergy 3.0 x 20 mm drug-eluting stent, [id number] mild luminal irregularities. 3.Left circ, proximal mild luminal irregularities, mid into OM, got 70% to 80% disease. PCI done wi Synergy 3.5 x 38 mm drug-eluting stent. 4.RCA: Proximal, mild luminal irregularities; mid, diffuse calcified 60% diseased; and distal, mild luminal irregularities; RPDA, RPLV mild luminal irregularities. 5.LVEDP is 5 mmHg. Assessment: 1.Significant left circ into OM1 disease, is status post PCI with Synergy 3.5 x 38 mm drug-eluting s tent. 2.Significant mid LAD disease, status post PCI with Synergy 3.0 x 20 mm drug-eluting stent. 3.Moderate RCA disease. Plan: 1.Aspirin 81 mg daily for life. 2.Brilinta 180 x1 was given in the [facility] lab technician. Patient will be loaded with Plavix 600 mg tonight and then 75 mg daily tomorrow. 3.Continue aggressive medical treatment for CAD. JOSEPHINE/HAILEE Voice ID: [id number] Report ID: [id number]
[2024-01-24] MEDS: CLOPIDOGREL 75 MG TABLET PO SCH (07:33)
[2024-01-24 07:49] VITALS: BP 125/81
[2024-01-24 08:24] VITALS: TEMP 97.2
--- NOTE | 2024-01-24 09:02 | P.DS ---
Admission Date: 01/23/24 Discharge Date: 01/24/24 Disposition: ROUTINE DISCHARGE Discharge Condition: FAIR Reason for Admission: Chest pain - Problems (1) Chest pain Current Visit: Yes Status: Acute (2) Hypertensive urgency Current Visit: Yes Status: Acute (3) Chronic back pain Current Visit: Yes Status: Acute (4) Hyponatremia Current Visit: Yes Status: Acute Brief History of Present Illness: 58-year-old gentleman recently diagnosed with hypertension, history of chronic back pain secondary to degenerative lumbar spine disease presented to the emergency department with a complaint of chest pain which has been present for about 3 days. Patient reports anterior chest pain associated with numbness and the left neck and the left shoulder, shortness of breath with exertion, no known precipitating factor, no known aggravating or relieving factors. Patient also reports his blood pressure readings have been severely high over the last few d ays. Patient denies any diaphoresis or palpitation. He mentioned patient undergoing workup at [facility] for his severe hypertension and workup included renal ultrasound which were unremarkable. He states that he has been hospitalized twice because of his blood pressure this month. He stated he was started on antihypertensives by his PCP about 2 months ago. Patient was assessed in the emergency department, his initial systolic blood pressure was 222, initial troponin is negative, EKG demonstrated sinus rhythm no acute ischemic changes. Patient was given multiple antihypertensives which improved his systolic blood pressure to the 150s. Patient is hospitalized for further management. Hospital Course: Patient was admitted to the medical floor with the following medical problems addressed: Chest pain Hypertensive urgency Troponin trended negative. ACS ruled out. Patient seen and evaluated by cardiology Dr. Vivas. Nuclear stress test was done which showed small stress-induced ischemia. Dr. Vivas performed cardiac cath and patient noted to have stenosis in LAD and obtuse marginal branches which were stented Blood pressure readings have improved on amlodipine, lisinopril and metoprolol and has been normotensive Patient currently denies any symptoms, vitals are stable for discharge. Patient has been advised to quit drinking alcohol and to stop smoking. Chronic back pain History of degenerative lumbar spine disease. Hyponatremia Suspect secondary to diuretic use. Stable Tobacco use Smoking cessation advised. Vital Signs/Physical Exam: Temp Pulse Resp BP Pulse Ox 97.2 F 59 18 125/81 98 01/24/24 08:00 01/24/24 08:00 01/24/24 08:00 01/24/24 08:00 01/24/24 08:00 General: Alert, In no apparent distress, Oriented x3 HEENT: Mucous membr. moist/pink, Sclerae nonicteric Neck: Supple, JVD not distended Respiratory: Clear to auscultation bilaterally, Normal air movement Cardiovascular: No edema, Regular rate/rhythm, Normal S1 S2 Gastrointestinal: Normal bowel sounds, Soft and benign, Non-distended, No tenderness Musculoskeletal: No swelling Integumentary: No rashes, No cyanosis Neurological: Normal speech, Normal strength at 5/5 x4 extr Laboratory Data at Discharge: WBC 7.90 thou/uL (4.3-10.9) 01/22/24 06:46 Hgb 16.2 g/dL (13.6-17.9) 01/22/24 06:46 Hct 47.2 % (39.6-49.0) 01/22/24 06:46 Plt Count 219 thou/uL (152-406) 01/22/24 06:46 Sodium 132 mEq/L (136-145) L 01/23/24 07:12 Potassium 4.2 mEq/L (3.5-5.1) 01/23/24 07:12 BUN 12 mg/dL (7-18) 01/23/24 07:12 Creatinine 0.94 mg/dL (0.70-1.30) 01/23/24 07:12 Glucose 97 mg/dL (74-106) 01/23/24 07:12 Total Bilirubin 0.6 mg/dL (0.2-1.0) 01/21/24 17:58 AST 20 U/L (15-37) 01/21/24 17:58 ALT 25 U/L (16-61) 01/21/24 17:58 Alkaline Phosphatase 85 U/L (45-117) 01/21/24 17:58 Triglycerides 36 mg/dL (<150) 01/21/24 17:58 Cholesterol 161 mg/dL (<200) 01/21/24 17:58 HDL Cholesterol 83 mg/dL (40-60) H 01/21/24 17:58 Cholesterol/HDL Ratio 1.94 01/21/24 17:58 Lipase 25 U/L (13-75) 01/21/24 11:04 Home Medications: Amlodipine [Norvasc*] 10 mg PO BEDTIME #30 tab 01/24/24 Atorvastatin Calcium [Lipitor] 40 mg PO BEDTIME #30 tab 01/24/24 Clopidogrel Bisulfate [Plavix*] 75 mg PO DAILY #30 tab 01/24/24 Metoprolol Tartrate [Lopressor*] 50 mg PO BID #60 tab 01/24/24 lisinopriL [Prinivil*] 20 mg PO DAILY #30 tab 01/24/24 New Medications: Atorvastatin Calcium [Lipitor] 40 mg PO BEDTIME #30 tab Metoprolol Tartrate [Lopressor*] 50 mg PO BID #60 tab Amlodipine [Norvasc*] 10 mg PO BEDTIME #30 tab Clopidogrel Bisulfate [Plavix*] 75 mg PO DAILY #30 tab lisinopriL [Prinivil*] 20 mg PO DAILY #30 tab Diet: AHA Activity: Ad zoie Followup: Emir Vivas MD [ACTIVE - CAN ADMIT] - 1 Week (call to schedule an appointment) NONE,NONE [Primary Care Provider] - 1-2 Weeks (call to schedule an appointment) Time spent managing pt's care (in minutes): 38
[2024-01-24 09:19] VITALS: O2SAT 98
--- NOTE | 2024-01-26 07:56 | TREADPHA ---
DX: CHEST PAIN AND SEVERE HYPERTENSION Date of Study: 01/23/2024 Ht: 0' 6 " Wt: 170 lb 0 oz Consulting Physician: HAKAN MEDICATIONS: HISTORY: HYPERTENSION, SMOKER HALF A PACK PER DAY FOR THIRTY SIX YEARS PHYSICIAL EXAMINATION: RESTING B.P.: 138/90 RESTING H.R.: 66 RESTING EKG: SINUS RHYTHM PROTOCOL: PHARMACOLOGIC EXERCISE TIME: 3:30 B.P. AT [place] STRESS: 139/84 IMPRESSION: LEXISCAN STRESS TEST PERFORMED PER PROTOCOL ORDERED. CARDIOLITE INJECTED PER PROTOCOL (SEE NUCLEAR MEDICINE REPORT). PREMATURE VENTRICULAR COMPLEXS NOTED THROUGHTOUT ENTIRE EXAM. PATIENT EXPERIENCED SHORTNESS OF BREATH DURING EXAM, SHORTNESS OF BREATH RESOLVED POST PROCEDURE.
== END 2024-01-24 11:50 | disposition home or self-care (01) | DRG 322 ==
LOC: ER 10:28 → ERHOLD 16:28 → 4TH 18:15 → OBSVTOIN 01-23 12:52
PROVIDERS: ADMIT Internal Medicine; ATTEND Internal Medicine
PROC: 027135Z Dilation of Coronary Artery, Two Arteries with Two Drug-eluting Intraluminal Devices, Percutaneous Approach (ICD-10-PCS; principal; 2024-01-23)
PROC: 4A023N7 Measurement of Cardiac Sampling and Pressure, Left Heart, Percutaneous Approach (ICD-10-PCS; 2024-01-23)
PROC: B2111ZZ Fluoroscopy of Multiple Coronary Arteries using Low Osmolar Contrast (ICD-10-PCS; 2024-01-23)
DX: I16.0 Hypertensive urgency (principal); E87.1 Hypo-osmolality and hyponatremia; I10 Essential (primary) hypertension; G89.29 Other chronic pain; M54.9 Dorsalgia, unspecified; F17.210 Nicotine dependence, cigarettes, uncomplicated; Z88.0 Allergy status to penicillin; Z71.6 Tobacco abuse counseling; Z79.02 Long term (current) use of antithrombotics/antiplatelets; Z79.899 Other long term (current) drug therapy
CPT/HCPCS: 36415; 71045; 71275; 74175; 76937; 78452; 80048; 80061; 80076; 81003; 83690; 83835; 84443; 84484; 85025; 85347; 92928; 93005; 93017; 93306; 93458; 94760; 96365; 96366; 96375; 99152; 99153; 99285; A9500; C1725; C1893; G0378; J1644; J1650; J2001; J2250; J2405; J2785; J3010; J7030; J7040; Q9967

== ENCOUNTER 2024-11-17 12:56 | Emergency (ER) | payer OTHER, SELFPAY ==
--- OUTSIDE RECORDS SUMMARY | 2024-11-17 13:02 | XMS REPORT | Continuity of Care Document ---
Author Name Unknown Address [address] [facility] [address] [place] [address] [facility] [place] Address [address] [facility] 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 Role Phone Pcp, Patient Does Not Have A Primary Care Physic guillermo CAPRI Attending Clinician Unavailable Nicole Blackwell DO Attending Clinician [phone] Doctor Unassigned, Pepper Pike Attending Clinician U Janay Dunne Attending Clinician JANAY MCCULLOUGH Attending Clinician Unavailab dano FAROOQ Admitting Clinician Unavailable Payers Payer Name Policy Type Policy Number Effective Date Expirati on Date Source Problems Condition Name Condition Details Condition Category Status Onset Date Resolution Date Last Treatment Date Treating Clinician Comments Source Chronic pancreatit is Chronic Pancreatit is Problem Active 14 00:00: 00 [facility] Coronary arterioscl erosis Coronary Arterioscl erosis Problem Active 02-12 00:00: 00 [facility] Cough Cough Problem Active 02-12 00:00: 00 [facility] Hyperchole sterolemia Hyperchole sterolemia Problem Active 02-12 00:00: 00 [facility] Chest pain Chest Pain Problem Active 6-26 00:00: 00 [facility] Anxiety Anxiety Problem Active 5- 00:00: 00 [facility] Essential hypertensi on Essential Hypertensi on Problem Active 5- [facility]:00: [facility] Pneumonia Pneumonia Problem Active 5- 00:00: [facility] Low back pain Low Back Pain Problem Active 5- 00:00: 00 [facility] Verruca vulgaris Verruca Vulgaris Problem Active 6 00:00: 00 [facility] Active or passive immunizati on Active or Passive Immunizati on Problem Active 6- 00:00: 00 [facility] Screening for malignant neoplasm of colon Screening for Malignant Neoplasm of Colon Problem Active 6- 00:00: 00 [facility] Essential hypertensi on Essential Hypertensi on Problem Active 4-06 00:00: 00 [facility] Urinary tract infectious disease Urinary Tract Infectious Disease Problem Active 4-06 00:00: 00 [facility] Chronic low back pain Chronic Low Back Pain Problem Active 4-06 00:00: 00 [facility] Nocturia Nocturia Problem Active 4-06 00:00: 00 [facility] Adult health examinatio n Adult Health Examinatio n Problem Active 4-06 00:00: 00 [facility] Chest pain Chest pain Disease Active 4-04 00:00: 00 Overview: Formattin g of this note might be different from the original. 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[employer] [facility] Other specified anemias Other specified anemias Disease Active 10-04 00:00: 00 [facility] Acute pancreatit is Acute pancreatit is Disease Active 10-04 00:00: 00 [facility] Chronic pancreatit is Chronic pancreatit is Disease Active 10-04 00:00: 00 [facility] Esophageal reflux Esophageal reflux Disease Active 10-04 00:00: 00 [facility] Allergies, Adverse Reactions, Alerts Allergy Name Allergy Type Status Severity Reaction(s) Onset Date Inactive Date Treating Clinician Comments Source Penicill ins Propensi ty to adverse reaction s Active Rash 10-04 00:00: 00 [facility] PENICILL INS Drug Class Active Rash 10-04 00:00: 00 [facility] PENICILL INS Allergy to substanc e Active Moderate severity Rash [facility] Social History Social Habit Start Date Stop Date Quantity Comments Source Exposure to SARS-CoV-2 (event) Not sure [facility] Sex Assigned At 1965 00:00:00 1965 00:00:00 [facility] Smoking Status Start Date Stop Date Source Heavy Tobacco Smoker [facility] Former Smoker Oumar Tijerinapaulina choe Unknown if ever smoked [facility] Medications Ordered Medication Name Filled Medication Name Start Date Stop Date Current Medication? Ordering Clinician Indication Dosage Frequency Signature (SIG) Comments Components Source dexamethaso ne (DECADRON PHOSPHATE) injection 10 mg 2020-07 19:15: 00 04-28 19:15 :00 No 10mg 10 mg, Intramuscu lar, ONCE, 1 dose, On 04/28/21 at 1415, STAT [facility] traMADol (ULTRAM) tablet 50 mg 12-10 17:00: 00 12-10 16:02 :00 No 50mg 50 mg, Oral, ONCE, 1 dose, 12/11/19 at 1200, Routine [facility] traMADol 50 mg tablet 12-10 00:00: 00 12-10 00:00 :00 No [id number] 50mg Take 1 tablet by mouth every 6 (six) hours as needed for Pain (scale 7-10) for up to 3 days. [facility] LEVOFLOXACI N 500 MG ORAL TAB 11-14 00:00: 00 Yes 1 tab po daily for 7 days [facility] METRONIDAZO LE 500 MG ORAL TAB 11-14 00:00: 00 Yes 1 tab po Q8h for 7 days [facility] FUROSEMIDE 20 MG ORAL TAB 4-20 00:00: 00 Yes 1 tab po BID for 10 days [facility] HYDROCODONE -ACETAMINOP HEN 5-325 MG ORAL TAB 4-20 00:00: 00 Yes 2 tab po q6h prn [facility] methocarbam ol 750 mg tablet Take [...] oral route as needed for 30 days. [facility] podofilox 0.5 % topical solution APPLY BY [...] NO VISIBLE WART TISSUE/MAX OF FOUR CYCLES) [facility] gabapentin 300 mg capsule TAKE 1 CAPSULE BY MOUTH THREE TIMES DAILY gabapentin 300 mg capsule TAKE 1 CAPSULE BY MOUTH THREE TIMES DAILY No gabapentin 300 mg capsule TAKE 1 CAPSULE BY MOUTH THREE TIMES DAILY [facility] methocarbam ol 750 mg tablet TAKE 1 TABLET BY MOUTH THREE TIMES DAILY NEEDED methocarbam ol 750 mg tablet TAKE 1 TABLET BY MOUTH THREE TIMES DAILY NEEDED No methocarba mol 750 mg tablet TAKE 1 TABLET BY MOUTH THREE TIMES DAILY NEEDED [facility] podofilox 0.5 % topical solution APPLY BY [...] NO VISIBLE WART TISSUE/MAX OF FOUR CYCLES) [facility] diclofenac 1 % topical gel APPLY 2 GRAMS TO THE AFFECTED AREA(S) BY TOPICAL ROUTE 4 TIMES PER DAY diclofenac 1 % topical gel APPLY 2 GRAMS TO THE AFFECTED AREA(S) BY TOPICAL ROUTE 4 TIMES PER DAY No diclofenac 1 % topical gel APPLY 2 GRAMS TO THE AFFECTED AREA(S) BY TOPICAL ROUTE 4 TIMES PER DAY [facility] doxazosin 1 mg tablet Take 1 tablet every day by oral route in the evening for 30 days. doxazosin 1 mg tablet Take 1 tablet every day by oral route in the evening for 30 days. No 1 Q1D doxazosin 1 mg tablet Take 1 tablet every day by oral route in the evening for 30 days. [facility] gabapentin 300 mg capsule Take 1 capsule 3 times a day by oral route for 90 days. gabapentin 300 mg capsule Take 1 capsule 3 times a day by oral route for 90 days. No 1capsul e(s) TID gabapentin 300 mg capsule Take 1 capsule 3 times a day by oral route for 90 days. [facility] lisinopril 10 mg tablet Take 1 tablet every day by oral route. lisinopril 10 mg tablet Take 1 tablet every day by oral route. No 1 Q1D lisinopril 10 mg tablet Take 1 tablet every day by oral route. [facility] methocarbam ol 750 mg tablet Take 1 tablet 3 times a day by oral route as needed. methocarbam ol 750 mg tablet Take 1 tablet 3 times a day by oral route as needed. No 1 TID methocarba mol 750 mg tablet Take 1 tablet 3 times a day by oral route as needed. [facility] tramadol 100 mg tablet Take 1 tablet every 8 hours by oral route as needed. tramadol 100 mg tablet Take 1 tablet every 8 hours by oral route as needed. No 1 Q8H tramadol 100 mg tablet Take 1 tablet every 8 hours by oral route as needed. [facility] gabapentin 300 mg capsule Take 1 capsule 3 times a day by oral route for 90 days. gabapentin 300 mg capsule Take 1 capsule 3 times a day by oral route for 90 days. No 1capsul e(s) TID gabapentin 300 mg capsule Take 1 capsule 3 times a day by oral route for 90 days. [facility] gabapentin 300 mg capsule Take 1 capsule 3 times a day by oral route for 30 days. gabapentin 300 mg capsule Take 1 capsule 3 times a day by oral route for 30 days. No 1capsul e(s) TID gabapentin 300 mg capsule Take 1 capsule 3 times a day by oral route for [address] [facility] amlodipine 10 mg tablet Take 1 tablet every day by oral route for 30 days. amlodipine 10 mg tablet Take 1 tablet every day by oral route for 30 days. No 1 Q1D amlodipine 10 mg tablet Take 1 tablet every day by oral route for [address] [facility] acetaminoph en 300 mg-codeine 30 mg tablet Take 1 tablet every 8 hours by oral route as needed, for pain. acetaminoph en 300 mg-codeine 30 mg tablet Take 1 tablet every 8 hours by oral route as needed, for pain. No 1 Q8H acetaminop hen 300 mg-codeine 30 mg tablet Take 1 tablet every 8 hours by oral route as needed, for pain. [facility] hydroxyzine HCl 25 mg tablet Take 1 tablet every 8 hours by oral route as needed, for anxiety/gayle ic attacks. hydroxyzine HCl 25 mg tablet Take 1 tablet every 8 hours by oral route as needed, for anxiety/gayle ic attacks. No 1 Q8H hydroxyzin e HCl 25 mg tablet Take 1 tablet every 8 hours by oral route as needed, for anxiety/pa binta attacks. [facility] lisinopril 30 mg tablet Take 1 tablet every day by oral route for 30 days. lisinopril 30 mg tablet Take 1 tablet every day by oral route for 30 days. No 1 Q1D lisinopril 30 mg tablet Take 1 tablet every day by oral route for [address] [facility] nitroglycer in 0.4 mg sublingual tablet DISSOLVE ONE TABLET UNDER THE TONGUE EVERY 5 MINUTES NEEDED FOR CHEST PAIN. DO NOT EXCEED A TOTAL OF 3 DOSES IN 15 MINUTES nitroglycer in 0.4 mg sublingual tablet DISSOLVE ONE TABLET UNDER THE TONGUE EVERY 5 MINUTES NEEDED FOR CHEST PAIN. DO NOT EXCEED A TOTAL OF 3 DOSES IN 15 MINUTES No nitroglyce rin 0.4 mg sublingual tablet DISSOLVE ONE TABLET UNDER THE TONGUE EVERY 5 MINUTES NEEDED FOR CHEST PAIN. DO NOT EXCEED A TOTAL OF 3 DOSES IN [address] [facility] Vital Signs Vital Name Observation Time Observation Value Comments S ource Body Weight 2024-10-08 00:00:00 2722 [facility]oz_av] [facility] BP Diastolic 2024-10-08 00:00:00 84 mm[Hg] [facility] BMI (Body Mass Index) 2024-10-08 00:00:00 23.1 kg/m2 [facility] BP Systolic 2024-10-08 00:00:00 155 mm[Hg] [facility] Height 2024-10-08 00:00:00 72 [in_i] [facility] BP Systolic 2024-02-13 00:00:00 193 mm[Hg] [facility] Height 2024-02-13 00:00:00 72 [in_i] [facility] Body Weight 2024-02-13 00:00:00 2694.4 [oz_av] [facility] BP Diastolic 2024-02-13 00:00:00 102 mm[Hg] [facility] BMI (Body Mass Index) 2024-02-13 00:00:00 22.8 kg/m2 [facility] Body Weight 2024-01-21 00:00:00 2704 [oz_av] [facility] BP Diastolic 2024-01-21 00:00:00 130 mm[Hg] [facility] BMI (Body Mass Index) 2024-01-21 00:00:00 22.9 kg/m2 [facility] Height 2024-01-21 00:00:00 72 [in_i] [facility] BP Systolic 2024-01-21 00:00:00 233 mm[Hg] [facility] BP Diastolic 2023-11-26 00:00:00 123 mm[Hg] [facility] Body Weight 2023-11-26 00:00:00 2720 [oz_av] [facility] Height 2023-11-26 00:00:00 72 [in_i] [facility] BMI (Body Mass Index) 2023-11-26 00:00:00 23.1 kg/m2 [facility] BP Systolic 2023-11-26 00:00:00 159 mm[Hg] [facility] BP Diastolic 2023-01-20 00:00:00 103 mm[Hg] [facility] Height 2023-01-20 00:00:00 71 [in_i] [facility] BMI (Body Mass Index) 2023-01-20 00:00:00 23.4 kg/m2 [facility] BP Systolic 2023-01-20 00:00:00 153 mm[Hg] [facility] Body Weight 2023-01-20 00:00:00 167.8 [lb_av] [facility] BP Diastolic 2022-12-27 00:00:00 101 mm[Hg] [facility] Height 2022-12-27 00:00:00 71 [in_i] [facility] BMI (Body Mass Index) 2022-12-27 00:00:00 23.8 kg/m2 [facility] binta BP Systolic 2022-12-27 00:00:00 155 mm[Hg] [facility] Body Weight 2022-12-27 00:00:00 170.7 [lb_av] [facility] Height 2021-11-07 00:00:00 71 [in_i] [facility] BP Diastolic 2021-10-30 00:00:00 88 mm[Hg] [facility] Height 2021-10-30 00:00:00 71 [in_i] [facility] BMI (Body Mass Index) 2021-10-30 00:00:00 22.4 kg/m2 [facility]inta BP Systolic 2021-10-30 00:00:00 140 mm[Hg] [facility] Body Weight 2021-10-30 00:00:00 160.7 [lb_av] S gurvinder [facility] Systolic blood pressure 2021-04-28 17:50:00 171 mm[Hg] [facility] Diastolic blood pressure 2021-04-28 17:50:00 100 mm[Hg] [facility] Heart rate 2021-04-28 17:50:00 101 [facility] temperature 2021-04-28 17:50:00 37.5 Melvi [facility] Respiratory rate 2021-04-28 17:50:00 18 /min [facility] Body weight 2021-04-28 17:50:00 77.111 kg [facility] Oxygen saturation in Arterial blood by Pulse oximetry 2021-04-28 17:50:00 99 /min [facility] Diastolic blood pressure 2019-12-11 15:42:00 100 mm[Hg] [facility] Heart rate 2019-12-11 15:42:00 93 /[facility] Body temperature 2019-12-11 15:42:00 36.94 Melvi [facility] Respiratory rate 2019-12-11 15:42:00 18 /min [facility] Body weight 2019-12-11 15:42:00 77.097 kg [facility] Oxygen saturation in Arterial blood by Pulse oximetry 2019-12-11 15:42:00 96 /min [facility] Systolic blood pressure 2019-12-11 15:42:00 163 mm[Hg] [facility] Procedures Procedure Date / Time Performed Performing Clinician Source electrocardiogram, routine ECG, 12 leads min 2024-01-21 00:00:00 [facility] NOTICE OF PRIVACY PRACTICES 2021-04-28 17:46:25 Doctor Unassigned, Pepper Pike [facility] CONSENT/REFUSAL FOR DIAGNOSIS AND TREATMENT 2021-04-28 17:44:03 Doctor Unassigned, Pepper Pike [facility] Hip Arthroscopy Dx [facility] Pancreatectomy [facility] Hip Surgery [facility] Unlisted Procedure Pancreas [facility] Plan of Care Planned Activity Planned Date Details Comments Source Diagnostic Test Pending 2022-12-27 00:00:00 fecal occult blood, immunoassay, stool [code = fecal occult blood, immunoassay, stool] [facility] Diagnostic Test Pending 2022-12-27 00:00:00 PSA, serum or plasma [code = PSA, serum or plasma] [facility] Diagnostic Test Pending 2022-12-27 00:00:00 HIV (1+2) Ab screen, serum [code = HIV (1+2) Ab screen, serum] [facility] Diagnostic Test Pending 2022-12-27 00:00:00 CBC w/ auto diff [code = CBC w/ auto diff] [facility] Diagnostic Test Pending 2022-12-27 00:00:00 CMP, serum or plasma [code = CMP, serum or plasma] [facility] Diagnostic Test Pending 2022-12-27 00:00:00 HbA1c (hemoglobin A1c), blood [code = HbA1c (hemoglobin A1c), blood] [facility] Diagnostic Test Pending 2022-12-27 00:00:00 lipid panel, serum [code = lipid panel, serum] [facility] Diagnostic Test Pending 2022-12-27 00:00:00 vitamin D, 25-hydroxy, total, serum [code = vitamin D, 25-hydroxy, total, serum] [facility] Diagnostic Test Pending 2022-12-27 00:00:00 PSA, serum or plasma [code = PSA, serum or plasma] [facility] Diagnostic Test Pending 2022-12-27 00:00:00 TSH, ultra-sensitive, serum [code = TSH, ultra-sensitive, serum] [facility] Diagnostic Test Pending 2022-12-27 00:00:00 hepatitis C virus Ab, serum [code = hepatitis C virus Ab, serum] [facility] Instructions [facility] Encounters Start Date/Time End Date/Time Encounter Type Admission Type Attending [facility] Care Facility Care Department Encounter ID Source 2024-10-08 00:00:00 2024-10-08 00:00:00 DEMETRIO Draper C: [address] [place] [address] , Ph. [facility] [id number] [facility] 2024-02-13 00:00:00 2024-02-13 00:00:00 DEMETRIO Draper C: [address], [address] [address] , Ph. [facility] [id number] [facility] ty [facility] 2024-01-21 00:00:00 2024-01-21 00:00:00 Sari Julio PRACTICING DERMATOLOGIST-DIRECTOR OF RELIGIOUS ACTIVITIES-B C: [address], [address], [place] [address] , Ph. [facility] [id number] [facility] 2023-11-26 00:00:00 2023-11-26 00:00:00 Sari Julio PRACTICING DERMATOLOGIST-DIRECTOR OF RELIGIOUS ACTIVITIES-B C: [address], [address], [place] [address] , Ph. [facility] 0501 [facility] 2023-05-09 00:00:00 2023-05-09 00:00:00 Outpatient GALLOWAY_C SJOSE SJOSE [id number] [facility] 2023-01-20 00:00:00 2023-01-20 00:00:00 Outpatient GALLOWAY_C SJOSE SJOSE [id number] [facility] 2023-01-20 00:00:00 2023-01-20 00:00:00 Rony Madrigal MD: [address] [place] [address] , Ph. SJOSE [facility] [id number] [facility] 2022-12-27 00:00:00 2022-12-27 00:00:00 Outpatient GALLOWAY_C SJOSE SJOSE [id number] [facility] 2022-12-27 00:00:00 2022-12-27 00:00:00 Outpatient GALLOWAY_C SJOSE SJOSE [id number] [facility] 2022-12-27 00:00:00 2022-12-27 00:00:00 Geetha Arce, WHEEL ADJUSTER: [address] [place] [address] , Ph. SJOSE [facility] [id number] [facility] 2022-06-05 00:00:00 2022-06-05 00:00:00 Outpatient GALLOWAY_C SJOSE SJOSE [id number] [facility] 2022-05-08 00:00:00 2022-05-08 00:00:00 Outpatient GALLOWAY_C SJOSE SJOSE [id number] [facility] 2021-11-08 01:48:00 2021-11-08 01:48:00 Outpatient GALLOWAY_C SJOSE SJOSE [id number] [facility] 2021-11-07 11:44:00 2021-11-07 11:44:00 Outpatient GALLOWAY_C SJOSE SJOSE [id number] [facility] 2021-11-07 00:00:00 2021-11-07 00:00:00 Geetha Arce, WHEEL ADJUSTER: [address], JESUS ALBERTO [address] , Ph. SJOSE [place] [facility] [id number] [facility] 2021-10-30 04:03:00 2021-10-30 04:03:00 Outpatient GALLOWAY_C SJOSE SJOSE [id number] [facility] 2021-10-30 04:03:00 2021-10-30 04:03:00 Outpatient GALLOWAY_C SJOSE SJOSE [id number] [facility] 2021-10-30 00:00:00 2021-10-30 00:00:00 Geetha Arce, WHEEL ADJUSTER: [address] [place] [address] , Ph. SJOSE [facility] [id number] [facility] 2021-10-18 12:23:00 2021-10-18 12:23:00 Outpatient GALLOWAY_C SJOSE SJOSE [id number] [facility] 2021-04-28 12:52:00 2021-04-28 13:45:00 Emergency Nicole Blackwell [facility] [id number] [facility] 2021-04-28 12:44:00 2021-04-28 12:44:00 Emergency X [facility] ERT [id number] [facility] 2021-04-28 00:00:00 2021-04-28 00:00:00 Orders Only Doctor Unassigned, Pepper Pike [facility] [id number] [facility] 2019-12-11 10:45:33 2019-12-11 12:08:00 Emergency Janay Mccullough [facility] [id number] [facility] 2019-12-11 10:45:33 2019-12-11 10:45:33 Emergency [facility] [id number] [facility] Results Test Description Test Time Test Comments Results Result Co mments Source [facility] Auto Differential panel - [id number] 00:00:00* Test Item Value Reference Range Interpretation [...] immature cells (test code = immature cells) mammography supervisor Neutrophils [#/volume] in Bl ood by Automated [...] Blood by Automated count (test code = 82377-3) 0 % not estab. Immature granulocytes [#/volume] in Blood by Automated count (test code = 00513-3) 0.0 x10e3/uL 0.0-0.1 Nucleated erythrocytes/100 leukocytes [Ratio] in Blood by Automated count (test code = 25883-4) mammography supervisor Morphology [Interpretation] in Blood Narrative (test code = 49356-2) mammography supervisor [facility] 2000 [facility] - Serum or [id number] 00:00:00* Test Item Value Reference Range Interpretation [...] in Serum or Plasma (test code = 2074-0) 103 mmol/L 96-106 Carbon dioxide, total [Moles/volume] in Serum or Plasma (test code = 2027-) 17 mmol/L 20-29 L Calcium [Mass/volume] in Ser um or Plasma (test code = 82255-4) 9.7 mg/dL 8.7-10.2 Protein [Mass/volume] in Ser um or Plasma (test code = 2885-2) 7.0 g/dL 6.0-8.5 Albumin [Mass/volume] in Ser um or Plasma (test code = 175-7) 4.7 g/dL 3.8-4.9 Globulin [Mass/volume] in Serum by calculation (test code = 97835-2) 2.3 g/dL 1.5-4.5 Albumin/Globulin [Mass Ratio ] in Serum or Plasma (test code = 1759-0) 2.0 1.2-2.2 Bilirubin.total [Mass/volume ] in Serum or Plasma (test code = 1974-) 0.3 mg/dL 0.0-1.2 Alkaline phosphatase [Enzymatic activity/volume] in Serum or Plasma (test code = 6768-6) 94 IU/L 44-121 Aspartate aminotransferase [Enzymatic activity/volume] in Serum or Plasma (test code = 1920-8) 17 IU/L 0-40 Alanine aminotransferase [Enzymatic activity/volume] in Serum or Plasma (test code = 1742-6) 13 IU/L 0-44 [facility] - Serum or [id number] 00:00:00* Test Item Value Reference Range Interpretation [...] or Plasma by calculation (test code = 62210-9) 15 mg/dL 5-40 Cholesterol in LDL [Mass/vol ume] in Serum or Plasma by calculation (test code = 39756-7) 106 mg/dL 0-99 H Laboratory comment [Text] in Report Narrative (test code = 85534-0) mammography supervisor [facility]/Hemoglobin.total in [id number] 00:00:00* Test Item Value Reference Range Interpretation Comme nts Hemoglobin A1c/Hemoglobin.to herman in Blood (test code = 4548-4) 5.3 % 4.8-5.6 [facility] [Units/volume] in Serum or Plasma by Detection limit <= 0.005 mIU/[id number] 00:00:00* Test Item Value Reference Range Interpretation Comme nts Thyrotropin [Units/volume] i n Serum or Plasma by Detection limit <= 0.005 mIU/L (test code = 97151-9) 1.350 uIU/mL 0.450-4.500 [facility]
[2024-11-17] MEDS ORDERED: ASPIRIN 81 MG CHEWABLE TABLET ONE (13:13)
[2024-11-17 13:40] LABS: Absolute Basophils 0.1 K/uL (0-0.5); Absolute Eosinophils 0.2 K/uL (0-0.5); Absolute Lymphocytes (CBC) 1.9 K/uL (0.7-4.9); Absolute Monocytes 1.5 K/uL (0.1-1.3); Absolute Neutrophil 8.9 K/uL (1.8-8.0); Basophils % 1.1 % (0-1.3); Eosinophils % 1.7 % (0-4.4); Hematocrit 40.6 % (39.6-49.0); Hemoglobin 13.8 g/dL (13.6-17.9); Lymphocytes % 15.3 % (15.3-44.8); MCH 33.6 pg (27.0-35.0); MCV 98.6 fL (80-100); MPV 8.7 fL (7.6-11.3); Monocytes % 11.4 % (3.3-12.3); Neutrophils % 70.5 % (41.7-73.7); Platelets 267 thou/uL (152-406); RBC Red Blood Cell Count 4.11 M/uL (4.33-5.43); Red Cell Distribution Width 13.5 % (12.1-15.2)
[2024-11-17] MEDS ORDERED: ONDANSETRON 4 MG/2 ML VIAL ONE (13:50)
--- NOTE | 2024-11-17 13:55 | RAD REPORT ---
EXAM: Chest Single View HISTORY: 59 years Male CHEST PAIN COMPARISON: 01/21/2024 FINDINGS: LUNGS/PLEURA: The lungs are clear. No pleural effusions or pneumothorax. No pulmonary edema. CARDIAC/MEDIASTINUM: The cardiac silhouette is within normal limits. UPPER ABDOMEN: No significant abnormality. BONES: No acute abnormality. LINES/TUBES/OTHER: N/A IMPRESSION: No evidence of acute cardiopulmonary disease. No significant change from prior.
[2024-11-17] MEDS ORDERED: lisinopriL 20 MG TAB ONE (14:15)
[2024-11-17] MEDS ORDERED: AMLODIPINE 10 MG TAB ONE (14:15)
[2024-11-17] MEDS ORDERED: NA CHLORIDE 0.9% 500 ML ONE (14:15)
[2024-11-17] MEDS ORDERED: lisinopriL 10 MG TAB ONE (14:15)
[2024-11-17 14:20] LABS: Albumin 3.6 g/dL (3.4-5.0); Albumin/Globulin Ratio 1.2 (1.1-1.8); Alkaline Phosphatase 87 U/L (45-117); Anion Gap 7.7 mEq/L (5.0-15.0); BUN Blood Urea Nitrogen 13 mg/dL (7-18); Bicarbonate 26 mEq/L (21-32); Bilirubin Total 0.5 mg/dL (0.2-1.0); Globulin 3.1 g/dL (2.3-3.5); Glomerular Filtration Rate 79 ml/min (=/>90); Glucose Level 101 mg/dL (74-106); NT PRO-BNP 88 pg/mL (<125); Potassium 3.7 mEq/L (3.5-5.1); Protein, Total 6.7 g/dL (6.4-8.2); Sodium Level 135 mEq/L (136-145); Troponin High Sensitivity 5.5 pg/mL (<58.9)
[2024-11-17 14:42] LABS: ALT/SGPT < 14 U/L (16-61); AST/SGOT < 10 U/L (15-37); Bilirubin Direct < 0.2 mg/dL (0-0.2); Bilirubin Indirect, Calculated 0.3 mg/dL (0.2-0.8)
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
[2024-11-17 18:59] VITALS: TEMP 98
[2024-11-17 19:01] VITALS: BP 140/90; O2SAT 97
--- NOTE | 2024-11-18 12:12 | EKG ---
Test Date: 2024-11-17 Test Time: 13:07:30 Stone Gang Sawyer: KOJO MEASUREMENT RESULTS: Intervals: Rate: 90 IA: 222 QRSD: 98 QT: 354 QTc: 433 [place]: P: 77 IA: 222 QRS: 18 T: 47 INTERPRETIVE STATEMENTS: Sinus rhythm with 1st degree AV block Septal infarct, age undetermined Abnormal ECG Compared to ECG 01/21/2024 10:43:57 No significant changes Electronically Signed On 11-18-24 12:09:16 CDT by Emir Vivas
== END 2024-11-17 17:49 | disposition home or self-care (01) ==
LOC: ER 12:56
DX: R07.9 Chest pain, unspecified (principal); I10 Essential (primary) hypertension
CPT/HCPCS: 36415; 71045; 80048; 80076; 83735; 83880; 84484; 85025; 93005; J2405; J7040

== ENCOUNTER 2025-04-18 00:22 | Inpatient (IN) | payer OTHER, SELFPAY ==
[2025-04-18] MEDS ORDERED: ONDANSETRON 4 MG/2 ML VIAL ONE (01:57)
[2025-04-18] MEDS ORDERED: MORPHINE 4 MG/ML SYR ONE (01:57)
[2025-04-18 02:02] LABS: Urine Microscopic Reflex YN NO UMIC
[2025-04-18 02:03] LABS: Absolute Lymphocytes (CBC) 2.0 K/uL (0.7-4.9); Hematocrit 36.5 % (39.6-49.0); Hemoglobin 12.5 g/dL (13.6-17.9); MCH 33.8 pg (27.0-35.0); MCHC 34.3 g/dL (32.0-36.0); MCV 98.6 fL (80-100); MPV 8.2 fL (7.6-11.3); Nucleated RBC Absolute Count 0.0 (0-0); Nucleated Red Blood Cells % 0.1 % (0-0); RBC Red Blood Cell Count 3.70 M/uL (4.33-5.43); White Blood Count 12.20 thou/uL (4.3-10.9)
[2025-04-18 02:39] LABS: ALT/SGPT 17.0 U/L (16-61); Albumin 3.1 g/dL (3.4-5.0); Albumin/Globulin Ratio 1.0 (1.1-1.8); Alkaline Phosphatase 83.0 U/L (45-117); Anion Gap 11.7 mEq/L (5.0-15.0); BUN Blood Urea Nitrogen 13.0 mg/dL (7-18); Globulin 3.2 g/dL (2.3-3.5); Glucose Level 94.0 mg/dL (74-106); Lipase 22.0 U/L (13-75)
[2025-04-18 02:41] LABS: AST/SGOT 22.0 U/L (15-37); Potassium 3.7 mEq/L (3.5-5.1)
--- NOTE | 2025-04-18 03:19 | ER ---
Nurse's Notes [facility] Name: Jose Brantley Age: 60 yrs Sex: Male : 1965 Arrival Date: 04/18/2025 Time: 00:22 Bed 4 Private MD: Diagnosis: SYMPTOMATIC HYPONATREMIA Presentation: 04/18 00:56 Chief complaint: Patient states: LOW BACK PAIN X2 DAYS. NOT SURE IF HE PULLED jj7 SOMETHING. PAINFUL URINATION. Coronavirus screen: At this time, the client does not indicate any symptoms associated with coronavirus-19. Ebola Screen: No symptoms or risks identified at this time. Initial Sepsis Screen: Does the patient meet any 2 criteria? No. Patient's initial sepsis screen is negative. Does the patient have a suspected source of infection? No. Patient's initial sepsis screen is negative. Risk Assessment: Do you want to hurt yourself or someone else? Patient reports no desire to harm self or others. Onset of symptoms was April 15, 2025. 00:56 Method Of Arrival: Ambulatory [facility] 00:56 Acuity: MADINA 3 jj7 00:56 Note MOTRIN 4 HRS AGO. jj7 Triage Assessment: 01:02 General: Appears in no apparent distress. uncomfortable, Behavior is calm, cooperative, jj7 appropriate for age. Pain: Complains of pain in back and abdomen. : Reports burning with urination, inability to void, pain in lower back. Historical: - Allergies: 01:02 PENICILLINS; jj7 - Immunization history:: Adult Immunizations up to date. - Infectious Disease History:: Denies. - Social history:: Smoking status: Patient reports the use of cigarette tobacco products, smokes .25 packs per day, Patient uses Patient/guardian denies using alcohol, street drugs, IV drugs. Screenin:05 [facility] ED Fall Risk Assessment (Adult) History of falling in the last 3 months, vc1 including since admission No falls in past 3 months (0 pts) Confusion or Disorientation No (0 pts) Intoxicated or Sedated No (0 pts) Impaired Gait No (0 pts) Mobility Assist Device Used No (0 pt) Altered Elimination No (0 pt) Score/Fall Risk Level 0 - 2 = Low Risk Oriented to surroundings, Maintained a safe environment, Educated pt \T\ family on fall prevention, incl call for assistance when getting out of bed, Assessed \T\ reinforced patient's understanding of fall precautions, Hourly rounding (assess needs \T\ fall precautionary measures) done. Abuse screen: Denies threats or abuse. Nutritional screening: No deficits noted. Tuberculosis screening: No symptoms or risk factors identified. Assessment: 02:07 General: Appears in no apparent distress. uncomfortable, well groomed, Behavior is vc1 calm, cooperative, appropriate for age. Pain: Complains of pain in low back area Pain does not radiate. Pain currently is 10 out of 10 on a pain scale. Also complains of Painful urination. Neuro: Level of Consciousness is awake, alert, obeys commands, Oriented to person, place, time, situation, Appropriate for age. Cardiovascular: Heart tones S1 S2 present Capillary refill < 3 seconds Patient's skin is warm and dry. Respiratory: Airway is patent Respiratory effort is even, unlabored, Respiratory pattern is regular, symmetrical, Breath sounds are clear bilaterally. GI: No deficits noted. No signs and/or symptoms were reported involving the gastrointestinal system. : Urine is cloudy, Reports burning with urination, pain in bilateral in lower back with urination. EENT: No deficits noted. No signs and/or symptoms were reported regarding the EENT system. Derm: Skin is intact, is healthy with good turgor, Skin is dry, Skin is normal, Skin temperature is warm. Musculoskeletal: Range of motion: intact in all extremities, Reports pain in back. Vital Signs: 00:56 BP 124 / 80; Pulse 89; Resp 20; Temp 97.3; Pulse Ox 99% ; Weight 77.11 kg; Height 6 ft. jj7 0 in. ; Pain 9/10; 02:00 BP 153 / 96; Pulse 76; Resp 20; Pulse Ox 98% ; vc1 03:09 BP 152 / 95; Pulse 74; Resp 20; Pulse Ox 92% on R/A; vc1 00:56 Body Mass Index 23.06 (77.11 kg, 182.88 cm) jj7 00:56 Pain Scale: Adult j7 ED Course: 00:47 Patient arrived in ED. kmf 01:01 Triage completed. jj7 01:02 Arm band placed on left wrist. Patient placed in an exam room, on a stretcher. jj7 01:05 Patient has correct armband on for positive identification. Bed in low position. Call vc1 light in reach. Provided Education on: Plan of care. Pulse ox on. NIBP on. 01:16 Jaylen Powers DO is Attending Physician. tt7 01:53 Inserted saline lock: 22 gauge in left forearm, using aseptic technique. Blood vc1 collected. Flushed with 10 mL NS. 02:05 CBC with Diff Sent. vc1 02:05 CMP Sent. vc1 02:05 Lipase Sent. vc1 03:08 Lani Almodovar RN is Primary Nurse. vc1 03:18 Nicho Edward MD is Hospitalizing Provider. tt7 03:44 Osmolality, Serum Sent. vc1 03:44 T4 Free Sent. vc1 03:44 Cortisol Sent. vc1 03:44 TSH Sent. vc1 04:36 No provider procedures requiring assistance completed. Patient admitted, IV remains in vc1 place. Administered Medications: 02:05 Drug: Ondansetron IVP 4 mg IVP once; over 2 minutes Route: IVP; Site: left forearm; vc1 03:44 Follow up: Response: No adverse reaction; Pain is decreased vc1 02:05 Drug: morphine IVP or IV 4 mg IVP once over 4 mins Route: IVP; Infused Over: 4 mins; vc1 Site: left forearm; 03:00 Follow up: Response: No adverse reaction; Pain is decreased vc1 03:43 Drug: NS 0.9% IV 1000 ml IV at 1000 ml once; to be given as a bolus over 60 minutes vc1 Route: IV; Rate: 1000 ml; Site: left forearm; 04:37 Follow up: IV Status: Completed infusion; IV Intake: 1000ml vc1 Medication: 02:06 VIS not applicable for this client. vc1 Intake: 04:37 IV: 1000ml; Total: 1000ml. vc1 Outcome: 03:18 Decision to Hospitalize by Provider. tt7 04:36 Admitted to Med/surg accompanied by tech, via wheelchair, room 214, vc1 04:36 Condition: stable 04:36 Instructed on the need for admit, 04:40 Patient left the ED. vc1 Signatures: Lani Almodovar RN RN vc1 Sandy Melendez RN RN jjAngelica [facility] [place], Jaylen, DO DO tt7
--- NOTE | 2025-04-18 03:19 | EDPHYS ---
Physician Documentation [facility] Name: Jose Brantley Age: 60 yrs Sex: Male : 1965 Arrival Date: 04/18/2025 Time: 00:22 Bed 4 Private MD: ED Physician Jaylen Powers Historical: - Allergies: 04/18 01:02 PENICILLINS; jj7 - Immunization history:: Adult Immunizations up to date. - Infectious Disease History:: Denies. - Social history:: Smoking status: Patient reports the use of cigarette tobacco products, smokes .25 packs per day, Patient uses Patient/guardian denies using alcohol, street drugs, IV drugs. Vital Signs: 00:56 BP 124 / 80; Pulse 89; Resp 20; Temp 97.3; Pulse Ox 99% ; Weight 77.11 kg; Height 6 ft. jj7 0 in. ; Pain 9/10; 02:00 BP 153 / 96; Pulse 76; Resp 20; Pulse Ox 98% ; vc1 03:09 BP 152 / 95; Pulse 74; Resp 20; Pulse Ox 92% on R/A; vc1 00:56 Body Mass Index 23.06 (77.11 kg, 182.88 cm) jj7 00:56 Pain Scale: Adult jj7 MDM: 01:16 Medical Screening Exam initiated tt7 08:32 ED course: 58. tt7 04/18 01:31 Order name: CBC with Diff; Complete Time: 02:40 04/18 01:31 Order name: CMP; Complete Time: 02:54 04/18 01:31 Order name: Lipase; Complete Time: 02:54 04/18 01:31 Order name: UA Rfx Steven Cult if indicated; Complete Time: 02:40 04/18 03:12 Order name: Osmolality, Serum; Complete Time: 07:14 04/18 03:12 Order name: TSH; Complete Time: 07:14 04/18 03:12 Order name: T4 Free; Complete Time: 07:14 04/18 03:12 Order name: Cortisol; Complete Time: 07:14 04/18 03:29 Order name: CBC with Automated Diff EDMS 04/18 03:29 Order name: CBC with Automated Diff EDMS 04/18 03:29 Order name: Comprehensive Metabolic Panel EDMS 04/18 03:29 Order name: Comprehensive Metabolic Panel EDOR 04/18 01:31 Order name: IV Saline Lock; Complete Time: 02:05 tt7 04/18 01:31 Order name: Labs collected and sent; Complete Time: 02:05 tt7 Administered Medications: 02:05 Drug: Ondansetron IVP 4 mg IVP once; over 2 minutes Route: IVP; Site: left forearm; vc1 03:44 Follow up: Response: No adverse reaction; Pain is decreased vc1 02:05 Drug: morphine IVP or IV 4 mg IVP once over 4 mins Route: IVP; Infused Over: 4 mins; vc1 Site: left forearm; 03:00 Follow up: Response: No adverse reaction; Pain is decreased vc1 03:43 Drug: NS 0.9% IV 1000 ml IV at 1000 ml once; to be given as a bolus over 60 minutes vc1 Route: IV; Rate: 1000 ml; Site: left forearm; 04:37 Follow up: IV Status: Completed infusion; IV Intake: 1000ml vc1 Disposition Summary: 04/18/25 03:18 Hospitalization Ordered Notes: Hospitalization Status: Inpatient Admission tt7 Provider: Nicho Edward tt7 Location: Telemetry/MedSurg (Inpatient) tt7 Condition: Stable tt7 Problem: new tt7 Symptoms: have improved tt7 Bed/Room Type: Standard tt7 Room Assignment: 214(04/18/25 03:32) Diagnosis - SYMPTOMATIC HYPONATREMIA tt7 Forms: - Medication Reconciliation Form tt7 - SBAR form tt7 - Leadership Thank You Letter tt7 Signatures: Dispatcher [employer] Josie Coelho, ROXANE BETTS cg Lani Almodovar RN RN vc1 Sandy Melendez RN RN jj7 Jaylen Powers DO DO tt7 Corrections: (The following items were deleted from the chart) 01:32 01:32 CBC+H.LAB.BRZ ordered. EDMS EDMS 01:32 01:32 COMPREHENSIVE METABOLIC PANEL+C.LAB.BRZ ordered. EDMS EDMS 01:32 01:32 LIPASE+C.LAB.BRZ ordered. EDMS EDMS 01:32 01:32 UA Rfx Steven Cult if indicated+U.LAB.BRZ ordered. EDMS EDMS 03:12 03:12 OSMOLALITY, SERUM+SC.LAB.BRZ ordered. EDMS EDMS 03:12 THYROID STIMULAT HORMONE+C.LAB.BRZ ordered. EDMS EDMS 03:12 T4 FREE+C.LAB.BRZ ordered. EDMS EDMS : 03:18 tt7 cg
[2025-04-18] MEDS ORDERED: ACETAMINOPHEN 325 MG TABLET PO PRN (03:25)
[2025-04-18] MEDS ORDERED: ONDANSETRON 4 MG/2 ML VIAL IV PRN (03:25)
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
[2025-04-18 04:24] LABS: Thyroid Stimulating Hormone 1.51 uIU/mL (0.358-3.740)
[2025-04-18 04:42] VITALS: BMI 26.3
[2025-04-18] MEDS: NA CHLORIDE 0.9% 1,000 ML IV SCH (05:01)
[2025-04-18] MEDS: HYDROCODONE/APAP 5/325 MG TAB PO PRN (05:02)
[2025-04-18] MEDS: HYDRALAZINE HCL 20 MG/ML VIAL IV PRN (05:35)
[2025-04-18] MEDS: METRONIDAZOLE 500mg IVPB 500 MG/100 ML BAG IV SCH (08:19)
[2025-04-18] MEDS: POTASSIUM 25 MEQ EFFERV TAB PO ONE (08:21)
[2025-04-18] MEDS: ENOXAPARIN 40 MG/0.4 ML SQ SCH (08:23)
[2025-04-18] MEDS: Ciprofloxacin 200mg IV 200 MG/100 ML IV.SOLN. IV SCH (09:12)
[2025-04-18] MEDS: MORPHINE 2 MG/ML SYR IV PRN (13:22)
[2025-04-18] MEDS: AMLODIPINE 10 MG TAB PO SCH (21:01)
[2025-04-19 04:46] LABS: Absolute Lymphocytes (CBC) 1.6 K/uL (0.7-4.9); Hematocrit 37.2 % (39.6-49.0); Hemoglobin 12.6 g/dL (13.6-17.9); MCH 34.1 pg (27.0-35.0); MCHC 33.8 g/dL (32.0-36.0); MCV 100.8 fL (80-100); MPV 9.2 fL (7.6-11.3); Nucleated RBC Absolute Count 0.0 (0-0); Nucleated Red Blood Cells % 0.1 % (0-0); RBC Red Blood Cell Count 3.69 M/uL (4.33-5.43); White Blood Count 9.80 thou/uL (4.3-10.9)
[2025-04-19 04:56] LABS: ALT/SGPT 16.0 U/L (16-61); AST/SGOT 20.0 U/L (15-37); Albumin 2.8 g/dL (3.4-5.0); Albumin/Globulin Ratio 1.0 (1.1-1.8); Alkaline Phosphatase 74.0 U/L (45-117); Anion Gap 8.1 mEq/L (5.0-15.0); BUN Blood Urea Nitrogen 10.0 mg/dL (7-18); Globulin 2.8 g/dL (2.3-3.5); Glucose Level 99.0 mg/dL (74-106); Potassium 4.1 mEq/L (3.5-5.1)
[2025-04-19 05:26] LABS: Magnesium 1.4 mg/dL (1.6-2.4)
[2025-04-19] MEDS: Magnesium Sulfate 2gm IVPB 2 G/50 ML BAG IV ONE (06:17)
[2025-04-19] MEDS: SODIUM PHOSPHATE 15 MM in NA CHLORIDE 0.9% 250 ML IV ONE (12:20)
--- NOTE | 2025-04-19 15:43 | P.PN ---
Date of Service: 04/19/25 Subjective: Overall improving. Denies fevers and chills. Review of Systems 10-point ROS is otherwise unremarkable Physical Examination - Vital Signs Temperature: 98.6 F Blood Pressure: 136/78 Pulse: 82 Respirations: 18 Pulse Ox (%): 94 - Physical Exam General: Alert, Oriented x3, Mild distress HEENT: Atraumatic, Normocephalic Neck: Supple Respiratory: Clear to auscultation bilaterally, Normal air movement Cardiovascular: Regular rate/rhythm, Normal S1 S2 Capillary refill: <2 Seconds Gastrointestinal: Soft and benign, W/out hepatosplenomegaly Musculoskeletal: No clubbing Integumentary: No rashes Neurological: Other (Alert awake nonfocal) Lymphatics: No axilla or inguinal lymphadenopathy - Studies Laboratory Data (last 24 hrs) 04/18/25 04/18/25 01:53 01:53 WBC 12.20 H Hgb 12.5 L Hct 36.5 L Plt Count 239 Sodium 124 L Potassium 3.7 BUN 13 Creatinine 1.27 Glucose 94 Total Bilirubin 0.4 AST 22 ALT 17 Alkaline Phosphatase 83 Lipase 22 Assessment and Plan - Plan 04/19 - Hyponatremia improving - Continue IV Cipro Flagyl, leukocytosis resolved - Continue fluids for 1 more day - Replace magnesium - Continue home blood pressure medication Hyponatremia symptomatic Dehydration IV hydration Monitor electrolytes and replace accordingly Monitor renal parameters Colitis Patient still continues to have diarrhea Started on Flagyl GI consult in the a.m. Hypertension Antihypertensives titrated Continue home medications and titrate as needed Hyperlipidemia Continue statin GI/DVT prophylaxis Advanced directive full code Discharge Plan: Home Plan to discharge in: 48 Hours - Advance Directives Does patient have a Living Will: No Does patient have a Durable POA for Healthcare: No - Code Status/Comfort Care Code Status: Full Code
[2025-04-19 21:56] LABS: Absolute Lymphocytes (CBC) 1.9 K/uL (0.7-4.9); Hematocrit 37.8 % (39.6-49.0); Hemoglobin 13.0 g/dL (13.6-17.9); MCH 34.4 pg (27.0-35.0); MCHC 34.5 g/dL (32.0-36.0); MCV 99.8 fL (80-100); MPV 8.7 fL (7.6-11.3); Nucleated RBC Absolute Count 0.0 (0-0); Nucleated Red Blood Cells % 0.3 % (0-0); RBC Red Blood Cell Count 3.78 M/uL (4.33-5.43); White Blood Count 11.50 thou/uL (4.3-10.9)
[2025-04-19 22:08] LABS: ALT/SGPT 19.0 U/L (16-61); AST/SGOT 19.0 U/L (15-37); Albumin 3.2 g/dL (3.4-5.0); Albumin/Globulin Ratio 1.1 (1.1-1.8); Alkaline Phosphatase 82.0 U/L (45-117); Anion Gap 14.0 mEq/L (5.0-15.0); BUN Blood Urea Nitrogen 12.0 mg/dL (7-18); Globulin 3.0 g/dL (2.3-3.5); Glucose Level 110.0 mg/dL (74-106); Magnesium 1.9 mg/dL (1.6-2.4); Potassium 4.0 mEq/L (3.5-5.1); Thyroid Stimulating Hormone 2.02 uIU/mL (0.358-3.740); Troponin High Sensitivity 11.7 pg/mL (<58.9)
--- NOTE | 2025-04-20 09:16 | P.PN ---
Subjective Date of Service: 04/20/25 Chief Complaint: Hyponatremia Subjective: Worsening (patient has abdominal distention and pain.) Physical Examination - Vital Signs Temperature: 97.8 F Blood Pressure: 157/98 Pulse: 83 Respirations: 16 Pulse Ox (%): 97 - Physical Exam General: Cooperative, Acute distress HEENT: Atraumatic, Normocephalic Respiratory: Clear to auscultation bilaterally, Normal air movement Cardiovascular: No edema, Normal pulses, Regular rate/rhythm, Normal S1 S2 Gastrointestinal: Distended, Tenderness Integumentary: No rashes, No breakdown, No significant lesion, No tenderness/swelling, No erythema, No warmth, No cyanosis Neurological: Normal speech Assessment And Plan - Plan Assessment Patient is a 60-year-old male with a past medical history of hypertension, hyperlipidemia and coronary disease. He returned to the hospital with recurrent back and abdominal pain. He was diagnosed with mild descending/sigmoid colitis roughly 2 weeks ago. He returned with the same symptoms. Colitis Hyponatremia Hypertension Hyperlipidemia Coronary artery disease Plan: Stat lactic acid and CT due to persistent pain Patient has distended and tender abdomen on physical exam Keep n.p.o. for the time being Continue ciprofloxacin and Flagyl IV fluid infusion and GI prophylaxis Multimodal pain regimen Depending on the result of CT, we will decide whether to consult general surgery Otherwise, outpatient colonoscopy with GI
[2025-04-20] MEDS ORDERED: SODIUM CHLORIDE 0.9% 10ML INJ IV PRN (09:17)
[2025-04-20] MEDS: PANTOPRAZOLE 40 MG INJ IVP SCH (09:54)
--- NOTE | 2025-04-20 09:54 | RAD REPORT ---
EXAMINATION: CT ABDOMEN AND PELVIS WITH CONTRAST CLINICAL INDICATION: abd pain and distention TECHNIQUE: CT abdomen and pelvis was performed, after the administration of IV contrast, [facility]. Axial, sagittal and coronal reconstructions were obtained. One or more of the following dose reduction techniques were used: Automated exposure control, adjustment of the mA and k V according to patient size, and iterative reconstruction. Unless otherwise specified, incidental findings do not require dedicated imaging follow-up. COMPARISON: 04/07/2025 FINDINGS: LOWER CHEST: The visualized lung bases are clear. Small hiatal hernia. A few small mildly prominent l ymph nodes seen esophagogastric junction, unchanged. LIVER: Normal in size and contour. No focal lesion. Grossly unremarkable gallbladder. SPLEEN: Normal size. No focal lesion. PANCREAS: No mass, ductal dilation, or mariano-pancreatic fluid. ADRENALS: Normal; no mass. KIDNEYS: Normal size and contour. No hydronephrosis. GASTROINTESTINAL TRACT: No evidence of free air, significant intra-abdominal free fluid, bowel obstru ction or abscess. APPENDIX: Normal appendix. LYMPH NODES: No lymphadenopathy. MUSCULOSKELETAL: Moderate lumbar degenerative changes. Mild anterolisthesis of L4 on L5, unchanged. ADDITIONAL FINDINGS: Small fat-containing left inguinal hernia. Aortoiliac atherosclerosis. IMPRESSION: No acute abnormalities seen in the abdomen or pelvis.
[2025-04-20 11:43] LABS: Absolute Lymphocytes (CBC) 1.3 K/uL (0.7-4.9); Hematocrit 39.0 % (39.6-49.0); Hemoglobin 13.4 g/dL (13.6-17.9); MCH 34.4 pg (27.0-35.0); MCHC 34.4 g/dL (32.0-36.0); MCV 100.1 fL (80-100); MPV 8.2 fL (7.6-11.3); Nucleated RBC Absolute Count 0.0 (0-0); Nucleated Red Blood Cells % 0.0 % (0-0); RBC Red Blood Cell Count 3.89 M/uL (4.33-5.43); White Blood Count 10.70 thou/uL (4.3-10.9)
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
[2025-04-20 11:59] LABS: Anion Gap 9.8 mEq/L (5.0-15.0); BUN Blood Urea Nitrogen 10.0 mg/dL (7-18); Glucose Level 106.0 mg/dL (74-106); Magnesium 1.7 mg/dL (1.6-2.4); Potassium 4.8 mEq/L (3.5-5.1)
[2025-04-20] MEDS: MAGNESIUM SULFATE 1 gm IVPB 1 GM/100 ML BAG IV ONE (17:01)
[2025-04-21 06:21] LABS: Anion Gap 8.0 mEq/L (5.0-15.0); BUN Blood Urea Nitrogen 9.0 mg/dL (7-18); Glucose Level 100.0 mg/dL (74-106); Magnesium 1.7 mg/dL (1.6-2.4); Potassium 4.0 mEq/L (3.5-5.1)
[2025-04-21] MEDS: MAGNESIUM SULFATE 1 gm IVPB 1 GM/100 ML BAG IV ONE (06:51)
[2025-04-21 07:13] LABS: Absolute Lymphocytes (CBC) 1.3 K/uL (0.7-4.9); Hematocrit 38.3 % (39.6-49.0); Hemoglobin 13.2 g/dL (13.6-17.9); MCH 34.2 pg (27.0-35.0); MCHC 34.4 g/dL (32.0-36.0); MCV 99.4 fL (80-100); MPV 8.8 fL (7.6-11.3); Nucleated RBC Absolute Count 0.0 (0-0); Nucleated Red Blood Cells % 0.0 % (0-0); RBC Red Blood Cell Count 3.85 M/uL (4.33-5.43); White Blood Count 9.20 thou/uL (4.3-10.9)
[2025-04-21] MEDS: HYOSCYAMINE SULF 0.125 MG TAB PO SCH (09:01)
[2025-04-21] MEDS: SIMETHICONE 80 MG CHEWABLE TAB PO SCH (10:01)
--- NOTE | 2025-04-21 12:03 | P.PN ---
Subjective Date of Service: 04/21/25 Chief Complaint: Hyponatremia Subjective: No new changes (Patient continues to complain of abdominal and back pain. CT abdomen pelvis was unremarkable. MRI of lumbar spine obtained due to excruciating back pain. Will also give a trial of Levsin and simethicone) Physical Examination - Vital Signs Temperature: 97.6 F Blood Pressure: 150/92 Pulse: 93 Respirations: 14 Pulse Ox (%): 99 - Physical Exam General: Acute distress HEENT: Atraumatic, Normocephalic Respiratory: Clear to auscultation bilaterally, Normal air movement Cardiovascular: No edema, Normal pulses, Regular rate/rhythm, Normal S1 S2 Neurological: Normal speech Assessment And Plan - Plan Assessment Patient is a 60-year-old male with a past medical history of hypertension, hyperlipidemia and coronary disease. He returned to the hospital with recurrent back and abdominal pain. He was diagnosed with mild descending/sigmoid colitis roughly 2 weeks ago. He returned with the same symptoms. Colitis Hyponatremia Hypertension Hyperlipidemia Coronary artery disease Plan: CT abdomen pelvis unremarkable Will obtain MRI of lumbar spine A trial of simethicone and Levsin persistent abdominal pain Continue current diet Continue ciprofloxacin and Flagyl IV fluid infusion and GI prophylaxis Multimodal pain regimen Otherwise, outpatient colonoscopy with GI
--- NOTE | 2025-04-21 17:37 | RAD REPORT ---
EXAMINATION: MRI LUMBAR SPINE WITH CONTRAST CLINICAL INDICATION: back pain TECHNIQUE: Multiplanar multisequence MR images were obtained of the lumbar spine WITH intravenous c ontrast. Unless otherwise specified, incidental findings do not require dedicated imaging follow-up. COMPARISON: No prior exam. FINDINGS: For purposes of this dictation, it is assumed that there are 5 non rib-bearing lumbar type vertebrae, and the most caudal fully segmented lumbar vertebra is labeled L5. ALIGNMENT: 8 mm degenerative anterolisthesis L4 on 5. BONE: Marrow edema is seen along the right aspect of the L2-L3 vertebral bodies with mild enhancement . CORD: No abnormal signal in the cord. The conus medullaris terminates at a normal level. The nerve ro ots of the cauda equina appear normal. SOFT TISSUE: The included paraspinal soft tissues and retroperitoneal structures are grossly normal. EVALUATION OF THE INDIVIDUAL LEVELS: L1-2: Mild posterior disc bulge. L2-3: Discogenic endplate changes with moderate to large disc protrusion right paracentral location m easuring 7 mm. This results in right lateral recess stenosis. There is moderate right exit foraminal stenosis. L3-4: Small endplate osteophyte with concentric posterior disc bulge. Mild narrowing of the anterior inferior aspects of both exit foramina. L4-5: Degenerative anterolisthesis with broad-based posterior bulge of this material and advanced fac et and ligamentum flavum hypertrophy. Findings result in severe canal stenosis measuring 3 mm in anterior posterior dimension. Both lateral recesses are markedly narrowed moderate bilateral exit for aminal narrowing, greater on the left. L5-S1: Posterior bulge of disc material asymmetric to the left with focal left paracentral extrusion of disc material with 6 mm of superior migration. Mild facet and ligament flavum hypertrophy. There is mild central canal stenosis and severe left lateral recess stenosis. Moderately severe left exit f oraminal stenosis. Paraspinal enhancement and vertebral body enhancement seen on the right at L2-3. No additional areas of enhancement seen. This may be related to discogenic changes however cannot exclude early spinal osteomyelitis. IMPRESSION: Severe central canal stenosis to 3 mm at L4-5. Additional levels of significant spondylosis as described above. Enhancement of the paraspinal tissues and vertebral bodies towards the right at L2-3 may be related t o discogenic changes. Early spinal osteomyelitis can also have this appearance. Advise correlation with appropriate clinical and laboratory studies.
[2025-04-22] MEDS: GABAPENTIN 100 MG CAP PO SCH (07:05)
[2025-04-22 07:35] LABS: Anion Gap 9.3 mEq/L (5.0-15.0); BUN Blood Urea Nitrogen 12.0 mg/dL (7-18); Glucose Level 97.0 mg/dL (74-106); Magnesium 1.8 mg/dL (1.6-2.4); Potassium 4.3 mEq/L (3.5-5.1)
[2025-04-22] MEDS: CEFTRIAXONE 1,000 MG in NA CHLORIDE 0.9% 50 ML IVPB SCH (09:00)
[2025-04-22] MEDS: VANCOMYCIN 1.5 GM in NA CHLORIDE 0.9% 500 ML IVPB SCH (13:00)
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
--- NOTE | 2025-04-22 14:22 | P.PN ---
Subjective Date of Service: 04/22/25 Chief Complaint: Hyponatremia Subjective: No new changes (Patient continues to have back pain. MRI lumbar spine with paraspinal osteomyelitis with vertebral body involvement. MRI also demonstrates severe L4-L5 lumbar spine stenosis) Physical Examination - Vital Signs Temperature: 97.5 F Blood Pressure: 143/79 Pulse: 90 Respirations: 18 Pulse Ox (%): 98 - Physical Exam General: Cooperative, Moderate distress HEENT: Atraumatic, Normocephalic Respiratory: Clear to auscultation bilaterally, Normal air movement Cardiovascular: No edema, Normal pulses, Regular rate/rhythm, Normal S1 S2 Neurological: Normal speech Assessment And Plan - Plan Assessment Patient is a 60-year-old male with a past medical history of hypertension, hyperlipidemia and coronary disease. He returned to the hospital with recurrent back and abdominal pain. He was diagnosed with mild descending/sigmoid colitis roughly 2 weeks ago. He returned with the same symptoms. Lumbar paraspinal osteomyelitis L4-L5 spinal stenosis Acute pain Colitis- ruled out by recent CT Hyponatremia Hypertension Hyperlipidemia Coronary artery disease Plan: Patient's pain was most likely from lumbar spine stenosis and osteomyelitis Discussed case with neurosurgery and radiology Currently looking into obtaining a CT-guided biopsy of the affected area Antibiotics modified by infectious disease. He is now on vancomycin and ceftriaxone Anticipate long-term antibiotics treatment for lumbar spine osteomyelitis. Patient will be evaluate by neurosurgery on Friday Continue multimodal pain regimen IV fluid infusion and GI prophylaxis Multimodal pain regimen Otherwise, outpatient colonoscopy with GI
[2025-04-22] MEDS: HYDROMORPHONE HCL 1 MG/ML INJ IV PRN (16:05)
--- NOTE | 2025-04-23 15:53 | P.PN ---
Subjective Date of Service: 04/23/25 Chief Complaint: Hyponatremia Subjective: Worsening (Patient is having bladder and bowel incontinence. He is unable to completely evacuate his urine. Suspecting urinary retention as well. He also reports erectile dysfunction. Transfer initiated to [facility] due to suspicion for cord compression.) Physical Examination - Vital Signs Temperature: 98.1 F Blood Pressure: 125/79 Pulse: 83 Respirations: 14 Pulse Ox (%): 99 - Physical Exam General: In no apparent distress, Cooperative HEENT: Atraumatic, Normocephalic Respiratory: Clear to auscultation bilaterally, Normal air movement Cardiovascular: No edema, Normal pulses, Regular rate/rhythm, Normal S1 S2 Neurological: Normal speech Assessment And Plan - Plan Assessment Patient is a 60-year-old male with a past medical history of hypertension, hyperlipidemia and coronary disease. He returned to the hospital with recurrent back and abdominal pain. He was diagnosed with mild descending/sigmoid colitis roughly 2 weeks ago. He returned with the same symptoms. Lumbar paraspinal osteomyelitis L4-L5 spinal stenosis Acute pain Colitis- ruled out by recent CT Hyponatremia Hypertension Hyperlipidemia Coronary artery disease Plan: Currently with symptoms suggestive of cord compression: Bladder and bowel incontinence, urinary retention and erectile dysfunction Transfer to [facility] for neurosurgical evaluation due to worsening symptoms Case discussed with neurosurgery, Dr. Resendez Regarding paraspinal osteomyelitis, we were not able to obtain CT-guided biopsy due to lack of needle If patient is still here, will reattempt next week In the meantime, continue vancomycin and ceftriaxone for lumbar spine osteomyelitis Anticipate long-term antibiotics treatment for lumbar spine osteomyelitis. Continue multimodal pain regimen IV fluid infusion and GI prophylaxis Multimodal pain regimen Otherwise, outpatient colonoscopy with GI
--- NOTE | 2025-04-24 11:27 | P.PN ---
Date of Service: 04/24/25 Subjective Date of Service: 04/24/25 Chief Complaint: Hyponatremia/back pain Subjective: No new complaints overnight, still with a severe back pain, episodes of bowel incontinence, erectile dysfunction Physical Examination - Vital Signs Temperature: 98.1 F Blood Pressure: 125/79 Pulse: 83 Respirations: 14 Pulse Ox (%): 99 - Physical Exam General: In no apparent distress, Cooperative HEENT: Atraumatic, Normocephalic Respiratory: Clear to auscultation bilaterally, Normal air movement Cardiovascular: No edema, Normal pulses, Regular rate/rhythm, Normal S1 S2 Neurological: Normal speech, ambulatory Assessment And Plan - Plan Assessment Lumbar paraspinal osteomyelitis Severe L4-L5 spinal stenosis Acute pain Colitis- ruled out by recent CT Hyponatremia Hypertension Hyperlipidemia Coronary artery disease Plan: Lumbar paraspinal osteomyelitis Severe L4-L5 spinal stenosis Acute pain MRI lumbar spine shows the following Severe central canal stenosis to 3 mm at L4-5. Additional levels of significant spondylosis as described above. Enhancement of the paraspinal tissues and vertebral bodies towards the right at L2-3 may be related to discogenic changes. Early spinal osteomyelitis can also have this appearance. Advise correlation with appropriate clinical and laboratory studies. Patient reports over the course of the last 6 months he has had progressive worsening back pain He also mentions low-grade fevers for the last 6 months with temperature of 100 Erectile dysfunction present in addition to incontinence of stool when urinating/having flatulence Transfer was initiated to [facility] for neurosurgical evaluation Hospitalist discussed case with Dr. Resendez Pending possible transfer for neurosurgery eval Continue IV antibiotics with vancomycin, ceftriaxone ID consulted and following As needed pain medications Colitis- ruled out by recent CT Hyponatremia Hypertension Hyperlipidemia Coronary artery disease Monitor electrolytes daily Continue home medications <Williams Beatty - Last Filed: 04/24/25 11:22> I have personally seen and evaluated the patient seen by Williams Beatty KELP CUTTER. I have reviewed the nurse practitioner's documentation, findings, assessment, and plan of care. I agree with the progress note as written and have made any necessary additions or clarifications <Christin Stacy - Last Filed: 04/24/25 15:49>
[2025-04-24] MEDS: HYDROCODONE/APAP 10/325 TAB PO PRN (14:17)
[2025-04-25 05:40] LABS: Hematocrit 40.0 % (39.6-49.0); Hemoglobin 13.3 g/dL (13.6-17.9); MCH 33.6 pg (27.0-35.0); MCHC 33.3 g/dL (32.0-36.0); MCV 100.8 fL (80-100); MPV 8.8 fL (7.6-11.3); RBC Red Blood Cell Count 3.97 M/uL (4.33-5.43); White Blood Count 10.60 thou/uL (4.3-10.9)
[2025-04-25 06:08] LABS: Anion Gap 10.1 mEq/L (5.0-15.0); BUN Blood Urea Nitrogen 16.0 mg/dL (7-18); Glucose Level 93.0 mg/dL (74-106)
[2025-04-25 06:10] LABS: Magnesium 1.8 mg/dL (1.6-2.4); Potassium 4.1 mEq/L (3.5-5.1)
--- NOTE | 2025-04-25 09:27 | P.PN ---
Date of Service: 04/25/25 Subjective Date of Service: 04/25/25 Chief Complaint: Hyponatremia/back pain Subjective: No new complaints overnight, still with a severe back pain Physical Examination - Vital Signs Temperature: 98.1 F Blood Pressure: 125/79 Pulse: 83 Respirations: 14 Pulse Ox (%): 99 - Physical Exam General: In no apparent distress, Cooperative HEENT: Atraumatic, Normocephalic Respiratory: Clear to auscultation bilaterally, Normal air movement Cardiovascular: No edema, Normal pulses, Regular rate/rhythm, Normal S1 S2 Neurological: Normal speech, ambulatory Assessment And Plan - Plan Assessment Lumbar paraspinal osteomyelitis Severe L4-L5 spinal stenosis Acute pain Colitis- ruled out by recent CT Hyponatremia Hypertension Hyperlipidemia Coronary artery disease Plan: Lumbar paraspinal osteomyelitis Severe L4-L5 spinal stenosis Acute pain MRI lumbar spine shows the following Severe central canal stenosis to 3 mm at L4-5. Additional levels of significant spondylosis as described above. Enhancement of the paraspinal tissues and vertebral bodies towards the right at L2-3 may be related to discogenic changes. Early spinal osteomyelitis can also have this appearance. Advise correlation with appropriate clinical and laboratory studies. Patient reports over the course of the last 6 months he has had progressive worsening back pain He also mentions low-grade fevers for the last 6 months with temperature of 100 Erectile dysfunction present in addition to incontinence of stool when urinating/having flatulence Transfer was [facility] to [facility] for [facility] evaluation Hospitalist discussed case with Dr. Resendez Pending possible transfer for neurosurgery eval CRP negative Continue IV antibiotics with vancomycin, ceftriaxone ID consulted and following As needed pain medications Colitis- ruled out by recent CT Hyponatremia Hypertension Hyperlipidemia Coronary artery disease Monitor electrolytes daily Continue home medications <Williams Beatty - Last Filed: 04/25/25 09:25> Patient was seen and examined. Events of the last 24 hours have been noted. Spoke with with JEMMA regarding patient's clinical picture after evaluating and examining the patient independently. I performed a substantial part of the MDM during this patient's care today. I personally made or approved the documented management plan and acknowledge its risk of complications. I agree with the findings and documentation provided in the JEMMA's notes. <Hafsa Huerta - Last Filed: 05/02/25 00:39>
[2025-04-25] MEDS: MAGNESIUM SULFATE 1 gm IVPB 1 GM/100 ML BAG IV ONE (09:36)
[2025-04-25] MEDS ORDERED: VANCOMYCIN 1.5 GM in NA CHLORIDE 0.9% 500 ML IVPB SCH (20:00)
--- NOTE | 2025-04-26 00:39 | PN ---
Subjective: The patient is sitting in bed. No new acute event. Chart reviewed. Objective: Vital Signs: Reviewed. Lungs: Basal crackles. Heart: S1, S2. Regular. Abdomen: Soft, nontender. Bowel sounds present. Extremities: No edema. Laboratory Data: Shows WBC 10.6, hemoglobin 13.3, platelets are 259. Chemistry shows BUN of 16, cre atinine 0.7. Assessment And Plan: 1. Early spinal osteomyelitis. 2. Colitis. 3. Moderate protein-calorie malnourishment. Consider sending QuantiFERON TB test. Continue empiric antibiotic. We will follow the patient as ne eded. Consider the patient transferring for neurosurgical evaluation. No other recommendation at th is time. NF/MODL Voice ID: [id number] Report ID: [id number]
[2025-04-26] MEDS: VANCOMYCIN 1.5 GM in NA CHLORIDE 0.9% 500 ML IVPB SCH (01:28)
[2025-04-26 05:03] LABS: Hematocrit 35.8 % (39.6-49.0); Hemoglobin 12.6 g/dL (13.6-17.9); MCH 35.2 pg (27.0-35.0); MCHC 35.2 g/dL (32.0-36.0); MCV 100.2 fL (80-100); MPV 8.7 fL (7.6-11.3); RBC Red Blood Cell Count 3.57 M/uL (4.33-5.43); White Blood Count 9.50 thou/uL (4.3-10.9)
[2025-04-26 05:25] LABS: Anion Gap 8.0 mEq/L (5.0-15.0); BUN Blood Urea Nitrogen 16.0 mg/dL (7-18); Glucose Level 98.0 mg/dL (74-106); Magnesium 2.0 mg/dL (1.6-2.4); Potassium 4.0 mEq/L (3.5-5.1)
[2025-04-26] MEDS ORDERED: VANCOMYCIN 1.5 GM in NA CHLORIDE 0.9% 500 ML IVPB SCH (08:00)
--- NOTE | 2025-04-26 10:49 | P.PN ---
Date of Service: 04/26/25 subjective: Denied problem with abx. still continue to have back pain. report having problem with prostate. states he has been dribbling when he pee. will let attending know. no fever/chill Objective Temp Pulse Resp BP Pulse Ox 97.7 F 85 17 170/90 H 96 04/26/25 04:00 04/26/25 08:13 04/26/25 10:04 04/26/25 08:13 04/26/25 10:04 - Physical Exam General: Alert, Oriented x3, HEENT: Atraumatic, Normocephalic Neck: Supple Respiratory: Clear to auscultation bilaterally Cardiovascular: Regular rate/rhythm, Normal S1 S2 Capillary refill: <2 Seconds Gastrointestinal: Soft and benign, NT, ND MSK: back pain Neurological:respond appropriately to question labs: wbc 9.5, hgb 12.6, BUN 16, cr 0.81, albumin 3.2 assessment and planning early spinal osteomyelitis severe L4-L5 spinal stenosis Colitis-ruled out by recent CT moderate protein calorie malnourishment continue empiric abx vancomycin and rocephin. Per AUDIO TECHNICIAN Williams, unable to do CT drainage due to not enough fluids. consider transferring patient for neurosurgical eval. will continue to monitor for infection with wbc and fever trend thank you for the consult case discussed and in agreement with Dr Carmen
[2025-04-26] MEDS: VANCOMYCIN 500 MG/VIAL ONE (21:25)
[2025-04-26] MEDS: VANCOMYCIN 1 GM/VIAL ONE (21:25)
[2025-04-26] MEDS: NA CHLORIDE 0.9% 500 ML ONE (21:26)
[2025-04-27 01:40] VITALS: O2SAT 97
[2025-04-27 06:06] LABS: Hematocrit 36.5 % (39.6-49.0); Hemoglobin 12.8 g/dL (13.6-17.9); MCH 34.8 pg (27.0-35.0); MCHC 34.9 g/dL (32.0-36.0); MCV 99.5 fL (80-100); MPV 8.3 fL (7.6-11.3); RBC Red Blood Cell Count 3.67 M/uL (4.33-5.43); White Blood Count 9.50 thou/uL (4.3-10.9)
[2025-04-27 06:24] LABS: Anion Gap 9.1 mEq/L (5.0-15.0); BUN Blood Urea Nitrogen 17.0 mg/dL (7-18); Glucose Level 92.0 mg/dL (74-106); Potassium 4.1 mEq/L (3.5-5.1)
--- NOTE | 2025-04-27 11:46 | P.PN ---
Date of Service: 04/27/25 subjective: Denied problem with abx. still continue to have back pain. report having problem with prostate. states he has been dribbling when he pee. will let attending know. no fever/chill Objective Temp Pulse Resp BP Pulse Ox 98.7 F 81 16 129/76 99 04/27/25 08:00 04/27/25 08:00 04/27/25 08:00 04/27/25 08:00 04/27/25 08:00 - Physical Exam General: Alert, Oriented x3, HEENT: Atraumatic, Normocephalic Neck: Supple Respiratory: Clear to auscultation bilaterally Cardiovascular: Regular rate/rhythm, Normal S1 S2 Capillary refill: <2 Seconds Gastrointestinal: Soft and benign, NT, ND MSK: back pain Neurological:respond appropriately to question labs: wbc 9.5, hgb 12.8, BUN 17, cr 0.95, albumin 3.2 assessment and planning early spinal osteomyelitis severe L4-L5 spinal stenosis Colitis-ruled out by recent CT moderate protein calorie malnourishment urinary hesitancy/dribbling continue empiric abx vancomycin and rocephin. Per MATH TEACHER Williams, unable to do CT drainage due to not enough fluids. consider transferring patient for neurosurgic al eval. will order psa. UA unremarkable. possible BPH will continue to monitor for infection with wbc and fever trend thank you for the consult case discussed and in agreement with Dr Carmen
--- NOTE | 2025-04-27 19:25 | RAD REPORT ---
EXAM: URINARY BLADDER ULTRASOUND COMPARISON: None CLINICAL INDICATION: [facility] MAIN postvoid residual TECHNIQUE: Multiplanar grayscale and color flow sonographic images were obtained through the pelvis for evaluation of the bladder.. FINDINGS: Suboptimally distended limiting evaluation. Prevoid volume of the bladder is 47 mL. The po stvoid volume is 14 mL. The bladder wall shows no focal thickening or mass. No echogenic calculi. Ureteral jets were not visualized.. No suspicious pelvic masses were appreciated. IMPRESSION: Suboptimal distention limits evaluation. Mild post void residual.
[2025-04-28 05:51] LABS: Hematocrit 37.1 % (39.6-49.0); Hemoglobin 13.2 g/dL (13.6-17.9); MCH 35.2 pg (27.0-35.0); MCHC 35.5 g/dL (32.0-36.0); MCV 99.3 fL (80-100); MPV 8.5 fL (7.6-11.3); RBC Red Blood Cell Count 3.73 M/uL (4.33-5.43); White Blood Count 8.60 thou/uL (4.3-10.9)
[2025-04-28 06:08] LABS: Anion Gap 11.6 mEq/L (5.0-15.0); BUN Blood Urea Nitrogen 23.0 mg/dL (7-18); Glucose Level 130.0 mg/dL (74-106); Potassium 4.6 mEq/L (3.5-5.1)
[2025-04-28] MEDS: VANCOMYCIN 1.5 GM in NA CHLORIDE 0.9% 500 ML IVPB SCH (12:08)
[2025-04-28] MEDS: HYDROMORPHONE HCL 1 MG/ML INJ IV ONE (16:53)
[2025-04-28] MEDS ORDERED: VANCOMYCIN 1 GM in NA CHLORIDE 0.9% 250 ML IVPB SCH (22:00)
[2025-04-29 07:53] VITALS: TEMP 97.9
[2025-04-29 08:26] VITALS: BP 138/82
== END 2025-04-29 09:32 | disposition left against medical advice (07) | DRG 641 ==
LOC: ER 00:22 → 2ND 03:25
PROVIDERS: ADMIT Family Medicine; ATTEND Hospitalist
DX: E87.1 Hypo-osmolality and hyponatremia (principal); M46.26 Osteomyelitis of vertebra, lumbar region; E44.0 Moderate protein-calorie malnutrition; E86.0 Dehydration; I10 Essential (primary) hypertension; E78.5 Hyperlipidemia, unspecified; I44.1 Atrioventricular block, second degree; N52.9 Male erectile dysfunction, unspecified; M48.061 Spinal stenosis, lumbar region without neurogenic claudication; I25.10 Atherosclerotic heart disease of native coronary artery without angina pectoris; F17.210 Nicotine dependence, cigarettes, uncomplicated; R33.9 Retention of urine, unspecified; Z88.0 Allergy status to penicillin; Z95.1 Presence of aortocoronary bypass graft; Z68.26 Body mass index [BMI] 26.0-26.9, adult; Z79.02 Long term (current) use of antithrombotics/antiplatelets; Z79.899 Other long term (current) drug therapy
CPT/HCPCS: 36415; 72158; 74177; 76857; 80048; 80053; 80202; 81003; 82533; 83605; 83690; 83735; 83930; 84100; 84145; 84295; 84439; 84443; 84484; 85025; 85027; 86140; 86480; 87040; 93005; 96361; 96374; 96375; 99285; A9577; J0360; J0696; J0744; J1100; J1171; J1650; J2270; J2405; J2470; J3370; J3475; J7030; J7040; J7050; Q9967